=== PATIENT | male | born 1970 | race Caucasian/White ===

== ENCOUNTER 2017-02-13 19:25 | Emergency (ER) | payer BC, MEDICAID ==
[2017-02-13] MEDS ORDERED: Rocuronium 50 MG/5 ML Vial ONE (19:40)
[2017-02-13] MEDS ORDERED: Sodium Chloride 0.9% 1,000 ML IV ONE (19:40)
[2017-02-13] MEDS ORDERED: Etomidate 2 MG/ML 10 ML SDV ONE (19:43)
[2017-02-13] MEDS ORDERED: Aspirin 300 MG Supp ONE (19:53)
[2017-02-13] MEDS ORDERED: fentaNYL 100 MCG/2 ML SDV ONE ×2 (20:04→23:37)
[2017-02-13] MEDS ORDERED: Midazolam 1 MG/ML 2 ML SDV ONE (20:04)
[2017-02-13] MEDS ORDERED: Clopidogrel 75 MG Tab ONE ×2 (20:04→20:06)
--- NOTE | 2017-02-13 20:22 | EDM.PDOC ---
ED HPI CPR - General Chief Complaint: Cardiovascular Problem Stated Complaint: witnessed cardiac arrest Time Seen by Provider: 02/13/17 19:35 Source of Information: Reports: EMS, Old records History Limitations: Reports: Respiratory distress - History of Present Illness INITIAL COMMENTS - FREE TEXT/NARRATIVE: Patient was observed by his leaving their house. She was walking behind him. He fell and we are told he hit his head. When EMS arrived, they found him to be in V-Fib, per their report he was cyanotic on arrival. They did defibrillate x 1 and had ROSC. He does have an ICD, unknown if this was activated. He is not spontaneously breathing. EMS is currently ambu bagging for him. History of heart failure and ICD placement. He is non responsive. Symptom Onset Date: 02/13/17 Symptom Onset Time: 19:15 Witness: Yes Downtime Before ACLS: Unknown Advertising Sales Assistant Initial Findings: Reports: VF/VT Pre-Arrest Complaints: Reports: unknown Treatments PROFESSOR OF CRIMINAL JUSTICE: Reports: Other (see below) (defibrillation x 1 with return of spon. circ.) - Related Data Allergies/ADRs: Allergies Allergy/AdvReac Type Severity Reaction Status Date / Time hydrocodone Allergy Hives Verified 05/06/16 06:47 venom-honey bee Allergy Swelling Verified 05/06/16 06:47 [bee venom (honey bee)] Home Meds: Home Meds Albuterol [Proventil HFA] 2 puff INH Q4H PRN #1 inhaler 08/04/15 [Rx] Amphetamine/Dextroamphetamine [Adderall XR] 20 mg PO DAILY 08/04/15 [History] EPINEPHrine [Epipen] 0.3 mg .XX ASDIRECTED #1 pen 08/10/15 [Rx] Aspirin 81 mg DAILY 05/03/16 [History] Carvedilol [Carvedilol] 6.25 mg ASDIRECTED 05/03/16 [History] Clopidogrel Bisulfate [Clopidogrel] 75 mg DAILY 05/03/16 [History] Furosemide [Furosemide] 40 mg DAILY 05/03/16 [History] Lisinopril [Prinivil] 2.5 mg BID 05/03/16 [History] Pantoprazole Sodium [Pantoprazole Sodium] 40 mg DAILY 05/03/16 [History] Spironolactone [Spironolactone] 25 mg DAILY 05/03/16 [History] atorvaSTATin Calcium [Atorvastatin Calcium] 80 mg DAILY 05/03/16 [History] oxyCODONE 5 mg Q4H PRN 05/03/16 [History] Past Medical History Cardiovascular History: Reports: CAD, Cardiomyopathy, High cholesterol, Hypertension Musculoskeletal History: Reports: Gout, Other (see below) Other Musculoskeletal History: Restless leg syndrome Other Neuro History: adderall XR 40 mg in the am HX ADD Psychiatric History: Reports: ADHD - Past Surgical History Cardiovascular Surgical History: Reports: AICD, Coronary artery stent GI Surgical History: Reports: Appendectomy Musculoskeletal Surgical History: Reports: Arthroscopic knee Social & Family History - Tobacco Use Smoking Status *Q: Unknown Ever Smoked Years of Tobacco use: 10 Packs/Tins Daily: 0.2 Used Tobacco, but Quit: No Second Hand Smoke Exposure: No - Recreational Drug Use Recreational Drug Use: Yes Drug Use in Last 12 Months: No Recreational Drug Type: Reports: Amphetamines (Speed), Cocaine, Marijuana/ Hashish, Methamphetamine ED ROS GENERAL - Review of Systems Review Of Systems: Unable To Obtain ED EXAM, CPR - Physical Exam Exam: See Below Limited By: unresponsive General Appearance: moderate distress, obese Eye Exam: bilateral eye: PERRL Ears: normal TMs Throat/Mouth: Normal inspection, Normal oropharynx Head: atraumatic, normocephalic Respiratory Chest: lungs clear, normal breath sounds, other (physical ventilation) Cardiovascular: bradycardia GI/Abdominal Exam (Abbreviated): normal bowel sounds 1+: posterior-tibial (R), posterior-tibial (L), dorsalis-pedis (R), dorsalis- pedis (L) Extremities: slow capillary refill Neurological: unresponsive Skin Exam: Warm, Dry, Intact Course - Orders/Labs/Meds Meds: Medications Discontinued Medications Generic Name Dose Route Start Last Admin Trade Name Freq PRN Reason Stop Dose Admin Aspirin Confirm 02/13/17 19:53 Aspirin Administered 02/13/17 19:54 Dose 300 mg .ROUTE .STK-MED ONE Clopidogrel Bisulfate Confirm 02/13/17 20:06 Plavix Administered 02/13/17 20:07 Dose 450 mg .ROUTE .STK-MED ONE Etomidate Confirm 02/13/17 19:43 Amidate Administered 02/13/17 19:44 Dose 20 mg .ROUTE .STK-MED ONE Rocuronium Page Confirm 02/13/17 19:40 Zemuron Administered 02/13/17 19:41 Dose 50 mg .ROUTE .STK-MED ONE - Re-Assessments/Exams Free Text/Narrative Re-Assessment/Exam: 02/13/17 22:45 betzaida called upon arrival from ems. I did have acceptance by Dr. Mojica, cardiology at [facility]. At the last moment, his arrived and requested he be transferred to [facility] instead. Report called to both Dr. Manzano and the prosthetic technician jinny. While patient was here, he was intubated with 8.0 ETT. OG inserted, 14 maltese motley cath inserted, 2 Large bore IV, suggestion by betzaida to place in c-collar/c-spine precaution due to fall. Departure - Departure Time of Disposition: 20:14 Disposition: DC/Tfer to Acute Hospital 02 Condition: serious Clinical Impression: Ventricular fibrillation seen on makeup sales consultant Forms: Interfacility Transfer EMTALA - Problem List & Annotations (1) Ventricular fibrillation seen on makeup sales consultant SNOMED Code(s): 171162651 Code(s): I49.01 - VENTRICULAR FIBRILLATION Status: Acute - Problem List Review Problem List Initiated/Reviewed/Updated: Yes - Assessment/Plan Plan: sent to [facility] for possible ST elevated [place] with ventricular fibrillation
== END 2017-02-13 20:14 | disposition short-term general hospital (02) ==
LOC: VM.ED 19:28
PROC: 0BH17EZ Insertion of Endotracheal Airway into Trachea, Via Natural or Artificial Opening (ICD-10-PCS; principal; 2017-02-13)
PROC: 0T2BX0Z Change Drainage Device in Bladder, External Approach (ICD-10-PCS; 2017-02-13)
DX: I49.01 Ventricular fibrillation (principal); I25.10 Atherosclerotic heart disease of native coronary artery without angina pectoris; I42.9 Cardiomyopathy, unspecified; E78.00 Pure hypercholesterolemia, unspecified; I10 Essential (primary) hypertension; Z95.810 Presence of automatic (implantable) cardiac defibrillator; F90.9 Attention-deficit hyperactivity disorder, unspecified type; G25.81 Restless legs syndrome; Z95.5 Presence of coronary angioplasty implant and graft; Z88.8 Allergy status to other drugs, medicaments and biological substances; Z79.899 Other long term (current) drug therapy
CPT/HCPCS: 31500; 94002; 96361; 96374; 96375; 99291; A9270-GY; J2250; J3010; J7030

== ENCOUNTER 2020-04-03 12:36 | Emergency (ER) | payer BC, MEDICAID ==
--- NOTE | 2020-04-03 13:02 | EDM.PDOC ---
ED HPI GENERAL MEDICAL PROBLEM - General Chief Complaint: Cardiovascular Problem Time Seen by Provider: 04/03/20 12:36 Source of Information: Reports: Patient History Limitations: Reports: No Limitations - History of Present Illness INITIAL COMMENTS - FREE TEXT/NARRATIVE: Pt. presents to ER with complaints of AICD discharge and palpitations. He states that he woke with complaints of palpitations. He states that his AICD discharged once. Pt. has a history of ischemic cardiomyopathy with EF of 20%. Pt. had a cardiac arrest in 2015. 2015. Pt. has had AICD discharges in the past ; typically he just follows up with his cilnical scientist on an outpatient basis. On arrival to ED, denies any chest pain, shortness of breath, palpitations. He was diaphoretic during this episode. Denies nausea or vomiting. Treatments CUSTOMER CONSULTANT: Reports: EKG, IV/IO, Other Medication(s) Headache Pain Score (Numeric/FACES): 7 - Related Data Allergies Allergy/AdvReac Type Severity Reaction Status Date / Time hydrocodone Allergy Hives Verified 05/06/16 06:47 venom-honey bee Allergy Swelling Verified 05/06/16 06:47 [bee venom (honey bee)] Home Meds: Home Meds Albuterol [Proventil HFA] 2 puff INH Q4H PRN #1 inhaler 08/04/15 [Rx] Amphetamine/Dextroamphetamine [Adderall XR] 20 mg PO DAILY 08/04/15 [History] EPINEPHrine [Epipen] 0.3 mg .XX ASDIRECTED #1 pen 08/10/15 [Rx] Aspirin 81 mg DAILY 05/03/16 [History] Clopidogrel Bisulfate [Clopidogrel] 75 mg DAILY 05/03/16 [History] Furosemide 40 mg DAILY 05/03/16 [History] Lisinopril [Prinivil] 2.5 mg BID 05/03/16 [History] Pantoprazole Sodium 40 mg DAILY 05/03/16 [History] Spironolactone 25 mg DAILY 05/03/16 [History] atorvaSTATin Calcium [Atorvastatin Calcium] 80 mg DAILY 05/03/16 [History] carvediloL [Carvedilol] 6.25 mg ASDIRECTED 05/03/16 [History] oxyCODONE 5 mg Q4H PRN 05/03/16 [History] Past Medical History Cardiovascular History: Reports: Automatic Implantable Cardioverter Defibrillators, CAD, Cardiomyopathy, High Cholesterol, Hypertension, [place], Pacemaker Musculoskeletal History: Reports: Gout, Other (See Below) Other Musculoskeletal History: Restless leg syndrome Other Neuro History: adderall XR 40 mg in the am HX ADD Psychiatric History: Reports: ADHD - Past Surgical History Cardiovascular Surgical History: Reports: AICD, Coronary Artery Stent GI Surgical History: Reports: Appendectomy Musculoskeletal Surgical History: Reports: Arthroscopic Knee ED ROS GENERAL - Review of Systems Review Of Systems: See Below Constitutional: Reports: No Symptoms HEENT: Reports: No Symptoms Respiratory: Reports: No Symptoms Cardiovascular: Reports: Other (See above) Endocrine: Reports: No Symptoms GI/Abdominal: Reports: No Symptoms : Reports: No Symptoms Musculoskeletal: Reports: No Symptoms Skin: Reports: Diaphoresis Neurological: Reports: No Symptoms Psychiatric: Reports: No Symptoms Hematologic/Lymphatic: Reports: No Symptoms Immunologic: Reports: No Symptoms ED EXAM, GENERAL - Physical Exam Exam: See Below Exam Limited By: No Limitations General Appearance: Alert, WD/WN, No Apparent Distress Nose: Normal Inspection, No Blood Throat/Mouth: Normal Inspection, Normal Lips, Normal Voice, No Airway Compromise Head: Atraumatic, Normocephalic Neck: Normal Inspection, Supple, Non-Tender, Full Range of Motion Respiratory/Chest: No Respiratory Distress, Lungs Clear, Normal Breath Sounds, No Accessory Muscle Use, Chest Non-Tender Cardiovascular: Normal Peripheral Pulses, Regular Rate, Rhythm, No Edema, No Murmur Peripheral Pulses: 4+: Radial (L) GI/Abdominal: Soft, Non-Tender, No Mass (Male) Exam: Deferred Rectal (Males) Exam: Deferred Back Exam: Normal Inspection, Full Range of Motion Extremities: Normal Inspection, Normal Range of Motion, Non-Tender, No Pedal Edema, Normal Capillary Refill Neurological: Alert, Oriented, CN II-XII Intact, Normal Cognition, Normal Gait, Normal Reflexes, No Motor/Sensory Deficits Psychiatric: Normal Affect, Normal Mood Skin Exam: Warm, Dry, Intact, Normal Color, No Rash Lymphatic: No Adenopathy EKG INTERPRETATION Rhythm: NSR [place]: Normal P-Wave: Present QRS: Normal ST-T: Normal QT: Normal Course - Vital Signs Last Recorded V/S: Last Vital Signs Temp 36.0 C L 04/03/20 12:36 Pulse 88 04/03/20 12:36 Resp 18 04/03/20 12:36 BP 128/94 H 04/03/20 12:36 Pulse Ox 96 04/03/20 12:36 - Orders/Labs/Meds Orders: Active Orders 24 hr Category Date Time Status EKG Documentation Completion [RC] STAT Care 04/03/20 12:43 Active Labs: Laboratory Tests 04/03/20 04/03/20 04/03/20 Range/Units 12:58 12:58 12:58 WBC 5.5 (4.0-10.0) x10^3/uL RBC 5.06 (4.5-6.0) x10^6/uL Hgb 13.8 L (14.0-18.0) g/dL Hct 42.4 (40.0-52.0) % MCV 83.8 (78.0-93.0) fL MCH 27.3 (26.0-32.0) pg MCHC 32.5 (32.0-36.0) g/dL RDW Coeff of Demar 14.3 (10.0-15.0) % Plt Count 291 (130-400) x10^3/uL Neut % (Auto) 64.9 (50.0-80.0) % Lymph % (Auto) 21.7 L (25.0-50.0) % [place] % (Auto) 8.9 (2.0-11.0) % Eos % (Auto) 3.8 (0.0-4.0) % Baso % (Auto) 0.7 (0.2-1.2) % PT 10.3 (9.5-12.3) SEC INR 0.9 L (2.0-3.5) Sodium 141 (136-145) mmol/L Potassium 4.6 (3.5-5.1) mmol/L Chloride 105 (98-107) mmol/L Carbon Dioxide 28 (21-32) mmol/L Anion Gap 12.6 (10-20) mmol/L BUN 22 H (7-18) mg/dL Creatinine 1.3 (0.70-1.30) mg/dL Est Cr Clr Drug Dosing TNP Estimated GFR (MDRD) 58 Glucose 95 (74-106) mg/dL Calcium 8.7 (8.5-10.1) mg/dL Corrected Calcium 9.26 (8.5-10.1) mg/dL Magnesium 2.0 (1.8-2.4) mg/dL Total Bilirubin 0.2 (0.2-1.0) mg/dL AST 15 (15-37) U/L ALT 23 (16-63) U/L Alkaline Phosphatase 64 (46-116) U/L Troponin I 0.142 H* (<=0.056) ng/mL NT-Pro-B Natriuret Pep 592 H (<=125) pg/mL Total Protein 7.4 (6.4-8.2) g/dL Albumin 3.3 L (3.4-5.0) g/dL Globulin 4.1 Albumin/Globulin Ratio 0.80 TSH, Ultra Sensitive 1.982 (0.358-3.74) uIU/mL Departure - Departure Time of Disposition: 14:15 Disposition: DC/Tfer to Acute Hospital 02 Reason for Transfer *Q: Other Clinical Impression: NSTEMI (non-ST elevated myocardial infarction), AICD discharge Instructions: Heart Attack, [id number] Referrals: PCP,None [Primary Care Provider] - Forms: ED Department Discharge Sepsis Event Note (ED) - Evaluation Sepsis Screening Result: No Definite Risk - Focused Exam Vital Signs: Vital Signs Temp Pulse Resp BP Pulse Ox 04/03/20 12:36 36.0 C L 88 18 128/94 H 96 - Problem List Review Problem List Initiated/Reviewed/Updated: Yes - My Orders Last 24 Hours: My Active Orders 04/03/20 12:43 EKG Documentation Completion [RC] STAT - Assessment/Plan Last 24 Hours: My Active Orders 04/03/20 12:43 EKG Documentation Completion [RC] STAT Plan: Pt. will be transferred to [facility] in [place]. Dr. Cline will be accepting. Pt. will be transported via [facility] ground ambulance. Discussed findings with family. He is a code 1.
[2020-04-03 13:42] LABS: CHLORIDE,CL 105 mmol/L (98-107); SODIUM,NA 141 mmol/L (136-145)
[2020-04-03 13:51] LABS: ANION GAP 12.6 mmol/L (10-20)
[2020-04-03 16:29] VITALS: BP 123/78; PULSE 88
== END 2020-04-03 15:20 | disposition short-term general hospital (02) ==
LOC: VM.ED 12:36
DX: T82.199A Other mechanical complication of unspecified cardiac device, initial encounter (principal); I21.4 Non-ST elevation (NSTEMI) myocardial infarction; E78.00 Pure hypercholesterolemia, unspecified; I10 Essential (primary) hypertension; I25.2 Old myocardial infarction; I25.10 Atherosclerotic heart disease of native coronary artery without angina pectoris; M10.9 Gout, unspecified; Z79.82 Long term (current) use of aspirin; Z79.02 Long term (current) use of antithrombotics/antiplatelets; Z79.899 Other long term (current) drug therapy; Z91.030 Bee allergy status; Z88.5 Allergy status to narcotic agent
CPT/HCPCS: 36415; 80053; 83735; 83880; 84443; 84484; 85025; 85610; 93005; 99285-25

== ENCOUNTER 2020-05-09 02:15 | Emergency (ER) | payer MEDICAID ==
[2020-05-09] MEDS ORDERED: fentaNYL 100 MCG/2 ML SDV IVPUSH ONE (03:02)
[2020-05-09] MEDS ORDERED: Amiodarone 150 MG/3 ML SDV IVPUSH ONE ×2 (03:02)
[2020-05-09] MEDS ORDERED: Aspirin 81 MG Tab.Chew PO ONE (03:02)
[2020-05-09 03:31] LABS: ANION GAP 12.6 mmol/L (10-20); CHLORIDE,CL 101 mmol/L (98-107); SODIUM,NA 141 mmol/L (136-145)
--- NOTE | 2020-05-09 03:32 | EDM.PDOC ---
ED HPI GENERAL MEDICAL PROBLEM - General Stated Complaint: palpitations Time Seen by Provider: 05/09/20 02:15 Source of Information: Reports: Patient History Limitations: Reports: No Limitations - History of Present Illness INITIAL COMMENTS - FREE TEXT/NARRATIVE: Patient comes emergency department today with complaints of palpitations chest pain and shortness of breath. This patient awoke about 15 to 20 minutes prior to arrival from sleep feeling like his heart is pounding very fast. He felt like his AICD was going to fire at home although it has not. He does have a history of a reduced ejection fraction for which she has a defibrillator in place. He has had his ICD fire 17 times in the past. Most recently was about a month ago when it fired at home he was sent to [facility] in [place] had an angiogram that he reports was negative. He has felt well over the past couple of days. No fever no chills. No COVID exposure. No COVID symptoms. He has been out of his amiodarone and Coreg for the last 2 to 3 weeks and he relates that his primary care will not refill them until he sees them in the clinic. Therefore he just has not been taking them. He denies any fever or chills. No abdominal pain. He is very anxious and he has severe distress from the palpitation sensation in his chest. He still continues to smoke. - Related Data Allergies Allergy/AdvReac Type Severity Reaction Status Date / Time hydrocodone Allergy Hives Verified 05/06/16 06:47 venom-honey bee Allergy Swelling Verified 05/06/16 06:47 [bee venom (honey bee)] Home Meds: Home Meds Albuterol [Proventil HFA] 2 puff INH Q4H PRN #1 inhaler 08/04/15 [Rx] Amphetamine/Dextroamphetamine [Adderall XR] 20 mg PO DAILY 08/04/15 [History] EPINEPHrine [Epipen] 0.3 mg .XX ASDIRECTED #1 pen 08/10/15 [Rx] Aspirin 81 mg DAILY 05/03/16 [History] Clopidogrel Bisulfate [Clopidogrel] 75 mg DAILY 05/03/16 [History] Furosemide 40 mg DAILY 05/03/16 [History] Lisinopril [Prinivil] 2.5 mg BID 05/03/16 [History] Pantoprazole Sodium 40 mg DAILY 05/03/16 [History] Spironolactone 25 mg DAILY 05/03/16 [History] atorvaSTATin Calcium [Atorvastatin Calcium] 80 mg DAILY 05/03/16 [History] carvediloL [Carvedilol] 6.25 mg ASDIRECTED 05/03/16 [History] oxyCODONE 5 mg Q4H PRN 05/03/16 [History] Past Medical History Cardiovascular History: Reports: Automatic Implantable Cardioverter Defibrillators, CAD, Cardiomyopathy, High Cholesterol, Hypertension, [place], Pacemaker Musculoskeletal History: Reports: Gout, Other (See Below) Other Musculoskeletal History: Restless leg syndrome Other Neuro History: adderall XR 40 mg in the am HX ADD Psychiatric History: Reports: ADHD - Past Surgical History Cardiovascular Surgical History: Reports: AICD, Coronary Artery Stent GI Surgical History: Reports: Appendectomy Musculoskeletal Surgical History: Reports: Arthroscopic Knee ED ROS GENERAL - Review of Systems Review Of Systems: Comprehensive ROS is negative, except as noted in HPI. ED EXAM, GENERAL - Physical Exam Exam: See Below Exam Limited By: No Limitations General Appearance: Alert, WD/WN, Anxious, Moderate Distress Eye Exam: Bilateral Eye: EOMI, PERRL Ears: Normal External Exam Nose: Normal Inspection Throat/Mouth: Normal Inspection Head: Atraumatic, Normocephalic Neck: Normal Inspection, Supple Respiratory/Chest: No Respiratory Distress (No respiratory distress just tachypnea most likely due to his anxiety from the current situation.), Lungs Clear, Normal Breath Sounds, No Accessory Muscle Use, Chest Non-Tender Cardiovascular: Normal Peripheral Pulses, Regular Rate, Rhythm, Tachycardia, Other (His initial monitor shows a widely irregular complex in the rate of 160- 170.) Peripheral Pulses: 2+: Radial (L), Radial (R), Posterior Tibial (L), Posterior Tibial (R), Dorsalis Pedis (L), Dorsalis Pedis (R) GI/Abdominal: Normal Bowel Sounds, Soft (Male) Exam: Deferred Rectal (Males) Exam: Deferred Back Exam: Normal Inspection Extremities: Normal Inspection, Normal Range of Motion, Normal Capillary Refill Neurological: Alert, Oriented, CN II-XII Intact, Normal Cognition, No Motor/Sensory Deficits Psychiatric: Anxious Skin Exam: Intact, No Rash, Cool, Diaphoretic EKG INTERPRETATION EKG Date: 05/09/20 Time: 02:19 Rhythm: Other (Wide complex tachy irregular VT) Rate (Beats/Min): 156 Comparison: Change From Previous EKG Course - Vital Signs Last Recorded V/S: Last Vital Signs Temp Pulse Resp BP Pulse Ox 98 05/09/20 03:35 - Orders/Labs/Meds Orders: Active Orders 24 hr Category Date Time Status EKG 12 Lead [EKG Documentation Completion] [] STAT Care 05/09/20 02:15 Active Oxygen Therapy Peds [Oxygen Therapy, ED] [] Care 05/09/20 02:30 Active ASDIRECTED Labs: Laboratory Tests 05/09/20 05/09/20 05/09/20 Range/Units 02:20 02:20 02:20 WBC 9.3 (4.0-10.0) x10^3/uL RBC 5.43 (4.5-6.0) x10^6/uL Hgb 14.8 (14.0-18.0) g/dL Hct 45.6 (40.0-52.0) % MCV 84.0 (78.0-93.0) fL MCH 27.3 (26.0-32.0) pg MCHC 32.5 (32.0-36.0) g/dL RDW Coeff of Demar 14.6 (10.0-15.0) % Plt Count 294 (130-400) x10^3/uL Neut % (Auto) 55.4 (50.0-80.0) % Lymph % (Auto) 30.1 (25.0-50.0) % [place] % (Auto) 11.0 (2.0-11.0) % Eos % (Auto) 3.1 (0.0-4.0) % Baso % (Auto) 0.4 (0.2-1.2) % Sodium 141 (136-145) mmol/L Potassium 3.6 (3.5-5.1) mmol/L Chloride 101 (98-107) mmol/L Carbon Dioxide 31 (21-32) mmol/L Anion Gap 12.6 (10-20) mmol/L BUN 22 H (7-18) mg/dL Creatinine 1.2 (0.70-1.30) mg/dL Est Cr Clr Drug Dosing TNP Estimated GFR (MDRD) > 60 Glucose 112 H (74-106) mg/dL Calcium 8.3 L (8.5-10.1) mg/dL Corrected Calcium 8.78 (8.5-10.1) mg/dL Magnesium 2.0 (1.8-2.4) mg/dL Total Bilirubin 0.2 (0.2-1.0) mg/dL AST 19 (15-37) U/L ALT 24 (16-63) U/L Alkaline Phosphatase 71 (46-116) U/L POC Troponin I 0.02 (0.00-0.08) ng/mL Total Protein 7.5 (6.4-8.2) g/dL Albumin 3.4 (3.4-5.0) g/dL Globulin 4.1 Albumin/Globulin Ratio 0.83 TSH, Ultra Sensitive 2.358 (0.358-3.74) uIU/mL Meds: Medications Discontinued Medications Generic Name Dose Route Start Last Admin Trade Name Freq PRN Reason Stop Dose Admin Amiodarone HCl 150 mg 05/09/20 03:02 Cordarone IVPUSH 05/09/20 03:03 ONETIME ONE Amiodarone HCl 150 mg 05/09/20 03:02 Cordarone IVPUSH 05/09/20 03:03 ONETIME ONE Amiodarone HCl Confirm 05/09/20 05:18 Cordarone Administered 05/09/20 05:19 Dose 300 mg .ROUTE .STK-MED ONE Aspirin 324 mg 05/09/20 03:02 Aspirin PO 05/09/20 03:03 ONETIME ONE Fentanyl 100 mcg 05/09/20 03:02 Sublimaze IVPUSH 05/09/20 03:03 ONETIME ONE Fentanyl Confirm 05/09/20 05:18 Sublimaze Administered 05/09/20 05:19 Dose 100 mcg .ROUTE .STK-MED ONE Amiodarone HCl/Dextrose 360 mg in 200 mls @ 33.333 mls/hr 05/09/20 03:45 Nexterone In Dextrose 360 Mg/200 Ml IV ASDIRECTED WIL Protocol - Re-Assessments/Exams Free Text/Narrative Re-Assessment/Exam: 05/09/20 E Emergency was contacted for charting and medical provider assistance as well. [facility] launched for transfer. He was also connected to the Defib with pads in preparation for cardioversion if he becomes unstable at anytime. EKG shows a wide complex irregular regular kind of intermittent tachycardia most likely a controlled VT but not fast enough to fire his AICD which are usually set at 180 BPM. He was given fentanyl for pain and anxiety Aspirin 324 orally Amiodarone 150mg Bolus over 10 minutes. No further guidance from E Emergency for management at this time. I did repeat the Amiodarone 150mg bolus as he maintained in the wide complex VT the entire time in the ED. He had only one blood pressure in the 70s which was most likely from the fentanyl otherwise his pressures were in the 110s systolically while in the ED. His labs are rather unremarkable at this time with electrolytes creat normal and normal Troponin. He did feel better after the fentanyl and the amiodarone although his cardiac rhythm did not change and he maintained good pulses and was stable prior to and after discharge with [facility]. I did call and speak with Dr. Beck (spelling?) the ER MD HPI ER COURSE findings and concerns were relayed to him as well as the labs and therapy. No new orders or directions. He accepted the patient in transfer at this time by [facility]. The patient maintained stability and good blood pressure and level of consciousness during his time in the ED and care was transfered to [facility]. Departure - Departure Time of Disposition: 03:00 Disposition: DC/Tfer to Acute Hospital 02 Reason for Transfer *Q: Other Clinical Impression: Wide-complex tachycardia Referrals: PCP,None [Primary Care Provider] - Forms: [facility] Critical Care Note - Critical Care Note Total Time (mins): 75 Comments: 75 minutes of direct critical care time with E Emergency as well for direct patient care management transfer arrangements and consultation with multiple other providers and preparing for transport. - My Orders Last 24 Hours: My Active Orders 05/09/20 02:15 EKG 12 Lead [EKG Documentation Completion] [RC] STAT 05/09/20 02:30 Oxygen Therapy Peds [Oxygen Therapy, ED] [RC] ASDIRECTED - Assessment/Plan Last 24 Hours: My Active Orders 05/09/20 02:15 EKG 12 Lead [EKG Documentation Completion] [RC] STAT 05/09/20 02:30 Oxygen Therapy Peds [Oxygen Therapy, ED] [RC] ASDIRECTED Assessment:: Wide complex stable VT tachycardia. E Emergency usage Critical Care time 75 minutes. Hx of Reduced ejection fraction. Poor medication compliance. Plan: Transfer by [facility] to [facility] with Amiodarone gtt continued.
[2020-05-09] MEDS ORDERED: Amiodarone 150 MG/3 ML SDV ONE (05:18)
[2020-05-09] MEDS ORDERED: fentaNYL 100 MCG/2 ML SDV ONE (05:18)
== END 2020-05-09 03:35 | disposition short-term general hospital (02) ==
LOC: VM.ED 02:15
DX: R00.0 Tachycardia, unspecified (principal); I25.10 Atherosclerotic heart disease of native coronary artery without angina pectoris; E78.00 Pure hypercholesterolemia, unspecified; I10 Essential (primary) hypertension; I25.2 Old myocardial infarction; M10.9 Gout, unspecified; Z88.5 Allergy status to narcotic agent; Z91.030 Bee allergy status; Z79.82 Long term (current) use of aspirin; Z79.02 Long term (current) use of antithrombotics/antiplatelets; Z79.899 Other long term (current) drug therapy
CPT/HCPCS: 80053; 83735; 84443; 84484; 85025; 93005; 93010; 96374; 96375; 96376; 99291; 99291-25

== ENCOUNTER 2020-08-06 14:39 | Emergency (ER) | payer MEDICAID, OTHER ==
[2020-08-06] MEDS ORDERED: Sodium Chloride 0.9% 10 ML Syringe FLUSH PRN (15:00)
--- NOTE | 2020-08-06 15:06 | EDM.PDOC ---
ED HPI GENERAL MEDICAL PROBLEM - General Chief Complaint: Respiratory Problem Stated Complaint: CONGESTION,SINUS,CHEST PRESSURE,COFFEE Time Seen by Provider: 08/06/20 15:00 Source of Information: Reports: Patient History Limitations: Reports: No Limitations - History of Present Illness INITIAL COMMENTS - FREE TEXT/NARRATIVE: Patient comes emergency department today from home with complaints of 4 days of cough congestion. This patient for the past 4 days has had sinus congestion and drainage. He has had increasing cough and congestion in his chest. His chest congestion is now become a productive cough. He initially had a fever of 100.7 a couple of days ago but has not had it since. Today he has developed some tightness and heaviness in his chest. He has been diaphoretic. He does have a quite extensive cardiac history for which I am well aware of as I have taken care of him when he was in stable ventricular tachycardia just a couple of months ago which he ended up having another ablation. He does not feel any palpitations or tachycardia. He has not had any syncope. He did get COVID tested a couple of days ago but did not get the results of it. No abdominal pain nausea or vomiting. No loss of taste or smell. No diarrhea. No syncope. He has been taking his medications as prescribed in the past. No COVID exposure no COVID symptoms - Related Data Allergies Allergy/AdvReac Type Severity Reaction Status Date / Time hydrocodone Allergy Hives Verified 08/06/20 14:52 venom-honey bee Allergy Swelling Verified 08/06/20 14:52 [bee venom (honey bee)] Home Meds: Home Meds Albuterol [Proventil HFA] 2 puff INH Q4H PRN #1 inhaler 08/04/15 [Rx] Amphetamine/Dextroamphetamine [Adderall XR] 20 mg PO DAILY 08/04/15 [History] EPINEPHrine [Epipen] 0.3 mg .XX ASDIRECTED #1 pen 08/10/15 [Rx] Aspirin 81 mg DAILY 05/03/16 [History] Clopidogrel Bisulfate [Clopidogrel] 75 mg DAILY 05/03/16 [History] Furosemide 40 mg DAILY 05/03/16 [History] Lisinopril [Prinivil] 2.5 mg BID 05/03/16 [History] Pantoprazole Sodium 40 mg DAILY 05/03/16 [History] Spironolactone 25 mg DAILY 05/03/16 [History] atorvaSTATin Calcium [Atorvastatin Calcium] 80 mg DAILY 05/03/16 [History] carvediloL [Carvedilol] 6.25 mg ASDIRECTED 05/03/16 [History] oxyCODONE 5 mg Q4H PRN 05/03/16 [History] Albuterol [Ventolin HFA] 2 puff INH Q4H #1 puff 08/06/20 [Rx] predniSONE 20 mg PO DAILY #5 tab 08/06/20 [Rx] Past Medical History Cardiovascular History: Reports: Automatic Implantable Cardioverter Defibrillators, CAD, Cardiomyopathy, High Cholesterol, Hypertension, [place], Pacemaker Musculoskeletal History: Reports: Gout, Other (See Below) Other Musculoskeletal History: Restless leg syndrome Other Neuro History: adderall XR 40 mg in the am HX ADD Psychiatric History: Reports: ADHD - Past Surgical History Cardiovascular Surgical History: Reports: AICD, Coronary Artery Stent Other Cardiovascular Surgeries/Procedures: cardiac ablation GI Surgical History: Reports: Appendectomy Musculoskeletal Surgical History: Reports: Arthroscopic Knee Social & Family History - Tobacco Use Tobacco Use Status *Q: Former Tobacco User Used Tobacco, but Quit: Yes Month/Year Tobacco Last Used: 10/23 ED ROS GENERAL - Review of Systems Review Of Systems: Comprehensive ROS is negative, except as noted in HPI. ED EXAM, GENERAL - Physical Exam Exam: See Below Exam Limited By: No Limitations General Appearance: Alert, WD/WN, Anxious (Very anxious animated patient although this is how he is normally. ) Ears: Normal External Exam, Normal TMs Nose: No: Normal Inspection (A bit of injection and swelling of the nasal turbinates clear rhinorrhea and congestion. No blood) Throat/Mouth: Normal Lips, Normal Voice. No: Normal Inspection (Pharynx is unremarkable other than pink salmon-colored vesicles in the posterior pharynx and cobblestoning consistent with postnasal drip. There is no erythema swelling redness or exudate of the oropharynx.) Head: Atraumatic, Normocephalic Neck: Normal Inspection, Supple, Non-Tender, Full Range of Motion. No: Lymphadenopathy (L), Lymphadenopathy (R) Respiratory/Chest: No Respiratory Distress, Lungs Clear, Normal Breath Sounds, No Accessory Muscle Use, Chest Non-Tender, Other (He has a noted cough that is dry and hacking nonproductive) Cardiovascular: Normal Peripheral Pulses, Regular Rate, Rhythm Peripheral Pulses: 2+: Radial (L), Radial (R), Posterior Tibial (L), Posterior Tibial (R), Dorsalis Pedis (L), Dorsalis Pedis (R) GI/Abdominal: Normal Bowel Sounds, Soft, Non-Tender (Male) Exam: Deferred Rectal (Males) Exam: Deferred Back Exam: Normal Inspection, Full Range of Motion Extremities: Normal Inspection, Normal Range of Motion, Non-Tender, No Pedal Edema, Normal Capillary Refill Neurological: Alert, Oriented, Normal Cognition, No Motor/Sensory Deficits Psychiatric: Anxious Skin Exam: Warm, Intact, Normal Color, No Rash, Diaphoretic Lymphatic: No Adenopathy #1 Interpretation EKG Date: 08/06/20 Time: 15:05 Rhythm: NSR Rate (Beats/Min): 80 [place]: Normal P-Wave: Present QRS: Normal ST-T: Normal QT: Normal Comparison: Change From Previous EKG (although his previous was Stable V-Tach. Unchanged from recent EKG at [facility] through [facility].) Course - Vital Signs Last Recorded V/S: Last Vital Signs Temp 97.4 F 08/06/20 16:38 Pulse 82 08/06/20 16:38 Resp 18 08/06/20 16:38 BP 128/74 08/06/20 16:38 Pulse Ox 97 08/06/20 16:38 - Orders/Labs/Meds Orders: Active Orders 24 hr Category Date Time Status Peripheral IV Insertion Adult [OM.PC] Stat Oth 08/06/20 15:00 Ordered Labs: Laboratory Tests 08/06/20 08/06/20 08/06/20 Range/Units 15:12 15:25 15:46 WBC 7.6 (4.0-10.0) x10^3/uL RBC 4.76 (4.5-6.0) x10^6/uL Hgb 12.9 L D (14.0-18.0) g/dL Hct 39.8 L (40.0-52.0) % MCV 83.6 (78.0-93.0) fL MCH 27.1 (26.0-32.0) pg MCHC 32.4 (32.0-36.0) g/dL RDW Coeff of [place] 14.2 (10.0-15.0) % Plt Count 357 (130-400) x10^3/uL Neut % (Auto) 69.7 (50.0-80.0) % Lymph % (Auto) 16.4 L (25.0-50.0) % [place] % (Auto) 9.9 (2.0-11.0) % Eos % (Auto) 3.9 (0.0-4.0) % Baso % (Auto) 0.1 L (0.2-1.2) % Sodium (136-145) mmol/L Potassium (3.5-5.1) mmol/L Chloride (98-107) mmol/L Carbon Dioxide (21-32) mmol/L Anion Gap (10-20) mmol/L BUN (7-18) mg/dL Creatinine (0.70-1.30) mg/dL Est Cr Clr Drug Dosing Estimated GFR (MDRD) Glucose (74-106) mg/dL Calcium (8.5-10.1) mg/dL Corrected Calcium (8.5-10.1) mg/dL Total Bilirubin (0.2-1.0) mg/dL AST (15-37) U/L ALT (16-63) U/L Alkaline Phosphatase (46-116) U/L Troponin I (<=0.056) ng/mL C-Reactive Protein (<=0.9) mg/dL NT-Pro-B Natriuret Pep (<=125) pg/mL Total Protein (6.4-8.2) g/dL Albumin (3.4-5.0) g/dL Globulin Albumin/Globulin Ratio SARS CoV-2 RNA Rapid BIRD Invalid A Negative (NEGATIVE) 08/06/20 Range/Units 15:46 WBC (4.0-10.0) x10^3/uL RBC (4.5-6.0) x10^6/uL Hgb (14.0-18.0) g/dL Hct (40.0-52.0) % MCV (78.0-93.0) fL MCH (26.0-32.0) pg MCHC (32.0-36.0) g/dL RDW Coeff of [place]ar (10.0-15.0) % Plt Count (130-400) x10^3/uL Neut % (Auto) (50.0-80.0) % Lymph % (Auto) (25.0-50.0) % [place] % (Auto) (2.0-11.0) % Eos % (Auto) (0.0-4.0) % Baso % (Auto) (0.2-1.2) % Sodium 139 (136-145) mmol/L Potassium 4.3 (3.5-5.1) mmol/L Chloride 100 (98-107) mmol/L Carbon Dioxide 32 (21-32) mmol/L Anion Gap 11.3 (10-20) mmol/L BUN 20 H (7-18) mg/dL Creatinine 1.4 H (0.70-1.30) mg/dL Est Cr Clr Drug Dosing TNP Estimated GFR (MDRD) 53 Glucose 116 H (74-106) mg/dL Calcium 9.0 (8.5-10.1) mg/dL Corrected Calcium 9.32 (8.5-10.1) mg/dL Total Bilirubin 0.4 (0.2-1.0) mg/dL AST 23 (15-37) U/L ALT 32 (16-63) U/L Alkaline Phosphatase 83 (46-116) U/L Troponin I 0.130 H* (<=0.056) ng/mL C-Reactive Protein 1.4 H (<=0.9) mg/dL NT-Pro-B Natriuret Pep 773 H (<=125) pg/mL Total Protein 8.0 (6.4-8.2) g/dL Albumin 3.6 (3.4-5.0) g/dL Globulin 4.4 Albumin/Globulin Ratio 0.82 SARS CoV-2 RNA Rapid BIRD (NEGATIVE) Meds: Medications Discontinued Medications Generic Name Dose Route Start Last Admin Trade Name Freq PRN Reason Stop Dose Admin Albuterol/Ipratropium 3 ml 08/06/20 15:54 08/06/20 16:06 Duoneb 3.0-0.5 Mg/3 Ml NEB 08/06/20 15:55 3 ml ONETIME ONE Administration Aspirin 324 mg 08/06/20 16:36 08/06/20 16:42 Aspirin PO 08/06/20 16:37 324 mg ONETIME ONE Administration Sodium Chloride 10 ml 08/06/20 15:00 Saline Flush FLUSH ASDIRECTED PRN Keep Vein Open - Radiology Interpretation Free Text/Narrative:: Chest X-ray per radiology shows no pneumonia or edema. - Re-Assessments/Exams Free Text/Narrative Re-Assessment/Exam: 08/06/20 Duo-neb nebulizer Patient had complete resolution of his shortness of breath tightness in his breath and his cough with the above DuoNeb. EKG does not show any acute ST elevation or depression. His diaphoresis has resolved. Chest x-ray is unremarkable. WBC is negative. He does have a mildly elevated troponin at 0.130 a mildly elevated creatinine of 1.4 and a mildly elevated BUN. Chest pain or tightness has resolved after the nebulizer. He was given 324 of aspirin orally. This patient quite well and he has a rather extensive cardiac history. I would like him to stay in the emergency department for repeat troponin at 4 hours. With the change in his creatinine and his chronic rather large cardiac history I wonder if he does not have somewhat of a chronic elevation of his troponin. Although I cannot make that determination without serial evaluation of his tropo aric. The patient does not wish to stay and have his EKG and his troponin repeated as he has to take his dog to the vet. I explained to him that he could be having acute coronary syndrome, or other pathology distant with a heart attack or other ischemia and could have cardiac arrhythmias. The patient he denies wanting to stay and have a repeat of his troponin and his EKG. He is clearly understanding the risk of cardiac or arrhythmia or ischemic damage to his heart. He is alert appropriate and of sound mind. He understands the risk of leaving. He does state that he will return for repeat EKG and troponin in 4 hours. He just cannot stay here he needs to get his dog to the vet. I will treat him for his bronchitis but it is highly important for him to return so I can repeat a troponin and EKG. He is understanding of this his questions were answered. He still chooses to leave despite the risk planed above he signed the papers AGAINST MEDICAL ADVICE. Departure - Departure Time of Disposition: 16:42 Disposition: Against Medical Advice 07 Clinical Impression: Elevated troponin Acute bronchitis Qualifiers: Bronchitis organism: unspecified organism Qualified Code(s): J20.9 - Acute bronchitis, unspecified - Discharge Information Prescriptions: predniSONE 20 mg PO DAILY #5 tab Albuterol [Ventolin HFA] 2 puff INH Q4H #1 puff Instructions: Acute Bronchitis, Adult, [id number] Referrals: Danie Reid [facility] [Primary Care Provider] - Forms: ED Department Discharge Additional Instructions: You have chosen to leave Against Medical Advice with the clear understanding of the risk of , heart attack stroke or cardiac arrythmia that could be fatal. I would like you to return in 4 hours for a repeat EKG and Troponin at least. Return at 8PM. If during that time any new symptoms develop you must come directly to the ED or call 911. Continue your previous meds as before. Prednisone 20mg a day for the next 5 days. Rx to [facility]. Lots of fluids over the next few days. Albuterol Inhaler, 2 puffs every 4 hrs as needed for SOB or cough. RX to [facility]. Return to the ED if new or worsening symptoms. Follow up with PCP next available due to the elevated troponin. Sepsis Event Note (ED) - Evaluation Sepsis Screening Result: No Definite Risk - Focused Exam Vital Signs: Vital Signs Temp Pulse Resp BP Pulse Ox 08/06/20 16:38 97.4 F 82 18 128/74 97 08/06/20 14:42 96.5 F L 85 24 H 122/75 97 - My Orders Last 24 Hours: My Active Orders 08/06/20 15:00 Peripheral IV Insertion Adult [OM.PC] Stat - Assessment/Plan Last 24 Hours: My Active Orders 08/06/20 15:00 Peripheral IV Insertion Adult [OM.PC] Stat
[2020-08-06] MEDS ORDERED: Albuterol/Ipratropium 3.0-0.5 MG/3 ML Neb Soln NEB ONE (15:54)
[2020-08-06 16:27] LABS: CHLORIDE,CL 100 mmol/L (98-107); SODIUM,NA 139 mmol/L (136-145)
[2020-08-06 16:28] LABS: ANION GAP 11.3 mmol/L (10-20)
--- NOTE | 2020-08-06 16:28 | CR ---
[id number] RAD/RAD Chest PA And Lateral EXAM: RAD Chest PA And Lateral CLINICAL DATA: CHEST PAIN SHORTNESS OF BREATH COMPARISON: CORRELATION IS MADE WITH 2014 FINDINGS: The lungs are clear The cardiac silhouette is stable A pacemaker defibrillator is seen IMPRESSION: NO PNEUMONIA OR EDEMA Reid Cam MD 08/06/20 [id number] Thank you for allowing us to participate in the care of your patient.
[2020-08-06] MEDS ORDERED: Aspirin 81 MG Tab.Chew PO ONE (16:36)
[2020-08-06 16:55] VITALS: BP 128/74; PULSE 82
== END 2020-08-06 16:52 | disposition left against medical advice (07) ==
LOC: VM.ED 14:39
DX: J20.9 Acute bronchitis, unspecified (principal); R79.89 Other specified abnormal findings of blood chemistry; I10 Essential (primary) hypertension; I25.2 Old myocardial infarction; M10.9 Gout, unspecified; G25.81 Restless legs syndrome; I25.10 Atherosclerotic heart disease of native coronary artery without angina pectoris; F90.9 Attention-deficit hyperactivity disorder, unspecified type; Z79.899 Other long term (current) drug therapy; E78.00 Pure hypercholesterolemia, unspecified; Z87.891 Personal history of nicotine dependence; Z20.828 Contact with and (suspected) exposure to other viral communicable diseases; Z88.5 Allergy status to narcotic agent; Z91.030 Bee allergy status
CPT/HCPCS: 36415; 71046; 80053; 83880; 84484; 85025; 86140; 93005; 93010; 94640; 99284; 99284-25; A9270-GY; J7620-GY; U0002

== ENCOUNTER 2020-08-06 19:54 | Emergency (ER) | payer MEDICAID ==
--- NOTE | 2020-08-06 20:32 | EDM.PDOC ---
ED HPI GENERAL MEDICAL PROBLEM - General Stated Complaint: recheck troponin Time Seen by Provider: 08/06/20 20:10 Source of Information: Reports: Patient History Limitations: Reports: No Limitations - History of Present Illness INITIAL COMMENTS - FREE TEXT/NARRATIVE: Patient comes emergency department today for repeat EKG and troponin. This patient was seen 4 hours ago when he came in with shortness of breath tightness in his chest cough and congestion. He was diagnosed with acute bronchitis but had an elevation of his troponin at 0.13. He left AMA because he had to take his dog to the vet. This patient has quite extensive history of cardiac disease and some questionable underlying chronic elevation of his troponin. Although with his presentation of chest tightness I wanted to repeat a troponin although he refused and left AMA. He has felt quite well since he left just 4 hours ago. He has picked up his prednisone and his albuterol. His shortness of breath and tightness in his chest is resolved. He is not diaphoretic no nausea or vomiting. No weakness dizziness lightheadedness. No fever no chills. He has had no tachycardias or palpitations. His AICD has not fired. He did receive aspirin in his previous visit as well. - Related Data Allergies Allergy/AdvReac Type Severity Reaction Status Date / Time hydrocodone Allergy Hives Verified 08/06/20 14:52 venom-honey bee Allergy Swelling Verified 08/06/20 14:52 [bee venom (honey bee)] Home Meds: Home Meds Albuterol [Proventil HFA] 2 puff INH Q4H PRN #1 inhaler 08/04/15 [Rx] Amphetamine/Dextroamphetamine [Adderall XR] 20 mg PO DAILY 08/04/15 [History] EPINEPHrine [Epipen] 0.3 mg .XX ASDIRECTED #1 pen 08/10/15 [Rx] Aspirin 81 mg DAILY 05/03/16 [History] Clopidogrel Bisulfate [Clopidogrel] 75 mg DAILY 05/03/16 [History] Furosemide 40 mg DAILY 05/03/16 [History] Lisinopril [Prinivil] 2.5 mg BID 05/03/16 [History] Pantoprazole Sodium 40 mg DAILY 05/03/16 [History] Spironolactone 25 mg DAILY 05/03/16 [History] atorvaSTATin Calcium [Atorvastatin Calcium] 80 mg DAILY 05/03/16 [History] carvediloL [Carvedilol] 6.25 mg ASDIRECTED 05/03/16 [History] oxyCODONE 5 mg Q4H PRN 05/03/16 [History] Albuterol [Ventolin HFA] 2 puff INH Q4H #1 puff 08/06/20 [Rx] predniSONE 20 mg PO DAILY #5 tab 08/06/20 [Rx] Past Medical History Cardiovascular History: Reports: Automatic Implantable Cardioverter Defibrillators, CAD, Cardiomyopathy, High Cholesterol, Hypertension, [place], Pacemaker Musculoskeletal History: Reports: Gout, Other (See Below) Other Musculoskeletal History: Restless leg syndrome Other Neuro History: adderall XR 40 mg in the am HX ADD Psychiatric History: Reports: ADHD - Past Surgical History Cardiovascular Surgical History: Reports: AICD, Coronary Artery Stent Other Cardiovascular Surgeries/Procedures: cardiac ablation GI Surgical History: Reports: Appendectomy Musculoskeletal Surgical History: Reports: Arthroscopic Knee ED ROS GENERAL - Review of Systems Review Of Systems: Comprehensive ROS is negative, except as noted in HPI. ED EXAM, GENERAL - Physical Exam Exam: See Below Exam Limited By: No Limitations General Appearance: Alert, WD/WN, No Apparent Distress, Anxious Respiratory/Chest: No Respiratory Distress, Lungs Clear, Normal Breath Sounds, No Accessory Muscle Use, Chest Non-Tender Cardiovascular: Normal Peripheral Pulses, Regular Rate, Rhythm Peripheral Pulses: 2+: Radial (L), Radial (R), Posterior Tibial (L), Posterior Tibial (R), Dorsalis Pedis (L), Dorsalis Pedis (R) GI/Abdominal: Normal Bowel Sounds, Soft, Non-Tender Back Exam: Normal Inspection, Full Range of Motion Extremities: Normal Inspection, Normal Range of Motion, Non-Tender, No Pedal Edema, Normal Capillary Refill Neurological: Alert, Oriented, Normal Cognition, No Motor/Sensory Deficits Psychiatric: Anxious Skin Exam: Warm, Dry, Intact, Normal Color, No Rash #1 Interpretation EKG Date: 08/06/20 Time: 20:00 Rhythm: NSR Rate (Beats/Min): 86 [place]: Normal P-Wave: Present QRS: Normal ST-T: Normal QT: Normal Comparison: No Change Course - Vital Signs Last Recorded V/S: Last Vital Signs Temp 97.5 F 08/06/20 20:05 Pulse 95 08/06/20 20:05 Resp 16 08/06/20 20:05 BP 121/81 08/06/20 20:05 Pulse Ox 96 08/06/20 20:05 - Orders/Labs/Meds Labs: Laboratory Tests 08/06/20 Range/Units 20:08 Troponin I 0.124 H* (<=0.056) ng/mL - Re-Assessments/Exams Free Text/Narrative Re-Assessment/Exam: EKG is unchanged from his previous. Labs are drawn. To repeat his troponin. Surprisingly this patient does not want to stick around and wait for the results. He is understanding the risk of from a heart attack worsening cardiac disease cardiac ischemia. He is alert appropriate and understanding. He really wants to go spend time with his family. There is no confusion. He signed his AMA paperwork and he left. I will contact him if he has any change in his troponin. Repeat troponin 0.124 which is down from 0.13 Called and contacted the patient at home and informed him that his troponin is improved and he most likely has some chronic elevation of his troponin due to his cardiac history. Discharge instructions as previously from his first visit today. His questions were answered and he is comfortable with this plan. Departure - Departure Time of Disposition: 20:21 Disposition: Against Medical Advice 07 Clinical Impression: Elevated troponin, Bronchitis - Discharge Information Referrals: Danie Reid NP [Primary Care Provider] - Forms: ED Department Discharge Additional Instructions: I will call you with the troponin results. Return if any new or worsening symptoms. Continue medications as previously. Sepsis Event Note (ED) - Focused Exam Vital Signs: Vital Signs Temp Pulse Resp BP Pulse Ox 08/06/20 20:05 97.5 F 95 16 121/81 96
[2020-08-06 21:07] VITALS: BP 121/81; PULSE 95
== END 2020-08-06 20:25 | disposition left against medical advice (07) ==
LOC: VM.ED 19:54
DX: J40 Bronchitis, not specified as acute or chronic (principal); R79.89 Other specified abnormal findings of blood chemistry; I25.10 Atherosclerotic heart disease of native coronary artery without angina pectoris; E78.00 Pure hypercholesterolemia, unspecified; I10 Essential (primary) hypertension; I25.2 Old myocardial infarction; M10.9 Gout, unspecified; F90.9 Attention-deficit hyperactivity disorder, unspecified type; Z88.5 Allergy status to narcotic agent; Z91.030 Bee allergy status; Z79.82 Long term (current) use of aspirin; Z79.02 Long term (current) use of antithrombotics/antiplatelets; Z79.899 Other long term (current) drug therapy
CPT/HCPCS: 36415; 84484; 93005; 93010; 99284; 99285-25

== ENCOUNTER 2021-01-28 02:00 | Emergency (ER) | payer MEDICAID ==
[2021-01-28] MEDS ORDERED: Sodium Chloride 0.9% 1,000 ML IV ONE (02:05)
[2021-01-28] MEDS ORDERED: Sodium Chloride 0.9% 10 ML Syringe FLUSH PRN (02:14)
[2021-01-28] MEDS ORDERED: Aspirin 81 MG Tab.Chew PO ONE (02:30)
[2021-01-28] MEDS ORDERED: Amiodarone 150 MG/3 ML SDV IVPUSH ONE (02:39)
--- NOTE | 2021-01-28 02:59 | EDM.PDOC ---
ED HPI GENERAL MEDICAL PROBLEM - General Time Seen by Provider: 01/28/21 02:12 Source of Information: Reports: Patient, Family - History of Present Illness INITIAL COMMENTS - FREE TEXT/NARRATIVE: Trey is a 50 y/o male who comes to the ER with complaints of chest palpitations and pressure that he reports started about an hour ago when he was getting ready to go to bed. He reports that his heart is pounding fast and he feels like his AICD is going to discharge. It has discharged in the past, but he denies that it has yet tonight. He reports taking his meds, but has a history of medication non-compliance. He was taken off of his amiodorone in November, but it is unclear why. He was last seen by the [facility] Cariology group in May 2020 at which time he had an Ablation and his EF was 25-30%. - Related Data Allergies Allergy/AdvReac Type Severity Reaction Status Date / Time hydrocodone Allergy Hives Verified 08/06/20 14:52 venom-honey bee Allergy Swelling Verified 08/06/20 14:52 [bee venom (honey bee)] Home Meds: Home Meds Albuterol [Proventil HFA] 2 puff INH Q4H PRN #1 inhaler 08/04/15 [Rx] Amphetamine/Dextroamphetamine [Adderall XR] 20 mg PO DAILY 08/04/15 [History] EPINEPHrine [Epipen] 0.3 mg .XX ASDIRECTED #1 pen 08/10/15 [Rx] Aspirin 81 mg DAILY 05/03/16 [History] Clopidogrel Bisulfate [Clopidogrel] 75 mg DAILY 05/03/16 [History] Furosemide 40 mg DAILY 05/03/16 [History] Lisinopril [Prinivil] 2.5 mg BID 05/03/16 [History] Pantoprazole Sodium 40 mg DAILY 05/03/16 [History] Spironolactone 25 mg DAILY 05/03/16 [History] atorvaSTATin Calcium [Atorvastatin Calcium] 80 mg DAILY 05/03/16 [History] carvediloL [Carvedilol] 6.25 mg ASDIRECTED 05/03/16 [History] oxyCODONE 5 mg Q4H PRN 05/03/16 [History] Albuterol [Ventolin HFA] 2 puff INH Q4H #1 puff 08/06/20 [Rx] predniSONE 20 mg PO DAILY #5 tab 08/06/20 [Rx] Past Medical History Cardiovascular History: Reports: Automatic Implantable Cardioverter D efibrillators, CAD, Cardiomyopathy, High Cholesterol, Hypertension, [place], Pacemaker Musculoskeletal History: Reports: Gout, Other (See Below) Other Musculoskeletal History: Restless leg syndrome Other Neuro History: adderall XR 40 mg in the am HX ADD Psychiatric History: Reports: ADHD - Past Surgical History Cardiovascular Surgical History: Reports: AICD, Coronary Artery Stent Other Cardiovascular Surgeries/Procedures: cardiac ablation GI Surgical History: Reports: Appendectomy Musculoskeletal Surgical History: Reports: Arthroscopic Knee Review of Systems - Review of Systems Review Of Systems: See Below Constitutional: Reports: Diaphoresis (mild) Eyes: Reports: No Symptoms Ears: Reports: No Symptoms Nose: Reports: No Symptoms Mouth/Throat: Reports: No Symptoms Respiratory: Reports: Shortness of Breath (mildly) Cardiovascular: Reports: Chest Pain ("pressure"), Palpitations GI/Abdominal: Reports: No Symptoms Genitourinary: Reports: No Symptoms Musculoskeletal: Reports: No Symptoms Skin: Reports: Diaphoresis Neurological: Reports: No Symptoms Psychiatric: Reports: Anxiety ED EXAM, GENERAL - Physical Exam Exam: See Below General Appearance: Alert, WD/WN, No Apparent Distress (Adult male), Anxious Eye Exam: Bilateral Eye: PERRL Ears: Normal External Exam, Hearing Grossly Normal Nose: Normal Inspection Throat/Mouth: Normal Inspection, Normal Voice Head: Atraumatic, Normocephalic Neck: Supple Respiratory/Chest: No Respiratory Distress, Lungs Clear, Other (note well healed surgical scars to chest) Cardiovascular: Tachycardia GI/Abdominal: Normal Bowel Sounds, Soft (Male) Exam: Deferred Rectal (Males) Exam: Deferred Back Exam: Normal Inspection Extremities: Normal Inspection Neurological: Alert, Oriented, CN II-XII Intact Psychiatric: Anxious Skin Exam: Warm, Normal Color, No Rash, Diaphoretic (mildly) Lymphatic: No Adenopathy #1 Interpretation EKG Date: 01/28/21 Time: 02:04 Rhythm: Other (Wide Complex Tachycardia) Rate (Beats/Min): 156 P-Wave: Present Comparison: Change From Previous EKG EKG Interpretation Comments: EKG reviewed with Dr Thomas, Cardiology at [facility] and compared to previous studies, Probable Wide Complex Tachycardia Course - Vital Signs Text/Narrative:: 0200 The patient was seen by the [facility]. Labs and EKG were ordered upon arrival. Patient was given a saline bolus and oxygen placed. Noted his rate was in the 155-160 range and sustained. ASA 324mg po [facility] ordered. [facility] Thomas, Cardiology operation shift supervisor was consulted regarding this case. EKGs were sent and reviewed with Dr Thomas. He felt this was a wide complex tachycardia and Amiodorone 150mg IVP was given. Will then start Amiodorone gtt after the IVP med. 0220 [facility]a accepted the patient for transport to [facility]. 0300 Patient anxious, Lorazepam 1mg IVP ordered. Also nauseated so Zofran 4 mg IVP ordered. Repeat Troponin ordered 30 minutes after initial level as recommended by Dr Thomas. 0335 [facility] to bedside to package pt for transport. Amiodorone gtt infusing. Recent BP 124/104. Rate still in the 155-160 range. Labs starting to result CBC Hgb=15.9, Hct=48.9, WBC=11.0, Jvc=288; INR=0.9, PTT=25.2, Troponin I=172 and other labs pending on patient departure from the ER. - Orders/Labs/Meds Orders: Active Orders 24 hr Category Date Time Status EKG Documentation Completion [RC] STAT Care 01/28/21 03:02 Ordered COMPREHENSIVE METABOLIC PN,CMP [CHEM] Stat Lab 01/28/21 02:14 Ordered CULTURE BLOOD [BC] Stat Lab 01/28/21 02:14 Ordered CULTURE BLOOD [BC] Stat Lab 01/28/21 02:14 Ordered MAGNESIUM [CHEM] Stat Lab 01/28/21 02:14 Ordered PRO B-TYPE NATRIUR PEPT,BNPPRO [CHEM] Stat Lab 01/28/21 02:14 Ordered TROPONIN I HIGH SENSITIVITY [CHEM] Stat Lab 01/28/21 02:14 Ordered TROPONIN I HIGH SENSITIVITY [CHEM] Stat Lab 01/28/21 03:02 Ordered Amiodarone In Dextrose,Iso-Osm [Nexterone in Dextrose Med 01/28/21 02:45 Active 360 MG/200 ML] 360 mg in 200 ml IV ASDIRECTED Sodium Chloride 0.9% [Saline Flush] Med 01/28/21 02:14 Active 10 ml FLUSH ASDIRECTED PRN Blood Culture x2 Reflex Set [OM.PC] Stat Oth 01/28/21 02:14 Ordered Saline Lock Insert [OM.PC] Stat Oth 01/28/21 02:14 Ordered Medication Orders Amiodarone HCl/Dextrose (Nexterone In Dextrose 360 Mg/200 Ml) 360 mg in 200 mls @ 33.333 mls/hr IV ASDIRECTED WIL; Protocol Sodium Chloride (Sodium Chloride 0.9% 10 Ml Syringe) 10 ml FLUSH ASDIRECTED PRN PRN Reason: Keep Vein Open Labs: Laboratory Tests 01/28/21 01/28/21 Range/Units 02:10 02:10 WBC 11.0 H (4.0-10.0) x10^3/uL RBC 5.94 (4.5-6.0) x10^6/uL Hgb 15.9 D (14.0-18.0) g/dL Hct 48.9 (40.0-52.0) % MCV 82.3 (78.0-93.0) fL MCH 26.8 (26.0-32.0) pg MCHC 32.5 (32.0-36.0) g/dL RDW Coeff of Demar 15.2 H (10.0-15.0) % Plt Count 279 D (130-400) x10^3/uL Neut % (Auto) 68.4 (50.0-80.0) % Lymph % (Auto) 18.9 L (25.0-50.0) % Meagher % (Auto) 10.0 (2.0-11.0) % Eos % (Auto) 2.5 (0.0-4.0) % Baso % (Auto) 0.2 (0.2-1.2) % PT 10.4 (9.9-12.5) SEC INR 0.9 L (2.0-3.5) APTT 25.2 L (25.6-32.8) SEC Meds: Medications Generic Name Dose Route Start Last Admin Trade Name Freq PRN Reason Stop Dose Admin Amiodarone HCl/Dextrose 360 mg in 200 mls @ 33.333 mls/hr 01/28/21 02:45 Nexterone In Dextrose 360 Mg/200 Ml IV ASDIRECTED WIL Protocol Sodium Chloride 10 ml 01/28/21 02:14 Sodium Chloride 0.9% 10 Ml Syringe FLUSH ASDIRECTED PRN Keep Vein Open Discontinued Medications Generic Name Dose Route Start Last Admin Trade Name Freq PRN Reason Stop Dose Admin Amiodarone HCl 150 mg 01/28/21 02:39 Amiodarone 150 Mg/3 Ml Sdv IVPUSH 01/28/21 02:40 ONETIME ONE Aspirin 324 mg 01/28/21 02:30 Aspirin 81 Mg Tab.Chew PO 01/28/21 02:31 ONETIME ONE Lorazepam 1 mg 01/28/21 03:07 Lorazepam 2 Mg/Ml Sdv IVPUSH 01/28/21 03:08 STAT ONE Ondansetron HCl 4 mg 01/28/21 03:20 Ondansetron 4 Mg/2 Ml Sdv IVPUSH 01/28/21 03:21 ONETIME ONE Departure - Departure Time of Disposition: 02:40 Disposition: DC/Tfer to Acute Hospital 02 Condition: Good Clinical Impression: Wide-complex tachycardia, Elevated troponin I level Cardiomyopathy Qualifiers: Cardiomyopathy type: unspecified Qualified Code(s): I42.9 - Cardiomyopathy, unspecified - Discharge Information Forms: Interfacility Transfer EMTALA Additional Instructions: -Transfer to [facility] to ICU to [facility] and Martha via [facility] - My Orders Last 24 Hours: My Active Orders 01/28/21 02:14 COMPREHENSIVE METABOLIC PN,CMP [CHEM] Stat CULTURE BLOOD [BC] Stat CULTURE BLOOD [BC] Stat MAGNESIUM [CHEM] Stat PRO B-TYPE NATRIUR PEPT,BNPPRO [CHEM] Stat TROPONIN I HIGH SENSITIVITY [CHEM] Stat Sodium Chloride 0.9% [Saline Flush] 10 ml FLUSH ASDIRECTED PRN Blood Culture x2 Reflex Set [OM.PC] Stat Saline Lock Insert [OM.PC] Stat 01/28/21 02:45 Amiodarone In Dextrose,Iso-Osm [Nexterone in Dextrose 360 MG/200 ML] 360 mg in 200 ml IV ASDIRECTED 01/28/21 03:02 EKG Documentation Completion [RC] STAT TROPONIN I HIGH SENSITIVITY [CHEM] Stat - Assessment/Plan Last 24 Hours: My Active Orders 01/28/21 02:14 COMPREHENSIVE METABOLIC PN,CMP [CHEM] Stat CULTURE BLOOD [BC] Stat CULTURE BLOOD [BC] Stat MAGNESIUM [CHEM] Stat PRO B-TYPE NATRIUR PEPT,BNPPRO [CHEM] Stat TROPONIN I HIGH SENSITIVITY [CHEM] Stat Sodium Chloride 0.9% [Saline Flush] 10 ml FLUSH ASDIRECTED PRN Blood Culture x2 Reflex Set [OM.PC] Stat Saline Lock Insert [OM.PC] Stat 01/28/21 02:45 Amiodarone In Dextrose,Iso-Osm [Nexterone in Dextrose 360 MG/200 ML] 360 mg in 200 ml IV ASDIRECTED 01/28/21 03:02 EKG Documentation Completion [RC] STAT TROPONIN I HIGH SENSITIVITY [CHEM] Stat
[2021-01-28] MEDS ORDERED: LORazepam 2 MG/ML SDV IVPUSH ONE (03:07)
[2021-01-28] MEDS ORDERED: Ondansetron 4 MG/2 ML SDV IVPUSH ONE (03:20)
[2021-01-28 03:25] LABS: PTT,PARTIAL THROMBOPLSTIN TIME 25.2 SEC (25.6-32.8)
[2021-01-28 03:38] LABS: CHLORIDE,CL 101 mmol/L (98-107); SODIUM,NA 142 mmol/L (136-145)
[2021-01-28 03:39] LABS: ANION GAP 12.3 mmol/L (5-15)
== END 2021-01-28 03:50 | disposition short-term general hospital (02) ==
LOC: VM.ED 02:00
DX: R00.0 Tachycardia, unspecified (principal); R79.89 Other specified abnormal findings of blood chemistry; I10 Essential (primary) hypertension; I25.2 Old myocardial infarction; E78.00 Pure hypercholesterolemia, unspecified; M10.9 Gout, unspecified; G25.81 Restless legs syndrome; I25.10 Atherosclerotic heart disease of native coronary artery without angina pectoris; Z79.82 Long term (current) use of aspirin; Z79.02 Long term (current) use of antithrombotics/antiplatelets; Z79.899 Other long term (current) drug therapy; Z88.5 Allergy status to narcotic agent; Z91.030 Bee allergy status
CPT/HCPCS: 36415; 80053; 83735; 83880; 84484; 85025; 85610; 85730; 87040; 93005; 93010; 96365; 96375; 99284; 99285-25; A9270-GY; J0282; J2060; J2405; J7030

== ENCOUNTER 2021-02-28 18:51 | Emergency (ER) | payer MEDICAID ==
[2021-02-28] MEDS ORDERED: Amiodarone 150 MG/3 ML SDV IVPUSH ONE (19:18)
[2021-02-28] MEDS ORDERED: Sodium Chloride 0.9% 1,000 ML IV SCH (19:30)
--- NOTE | 2021-02-28 19:41 | EDM.PDOC ---
ED HPI GENERAL MEDICAL PROBLEM - General Chief Complaint: Cardiovascular Problem Stated Complaint: HEART PROBLEMS Time Seen by Provider: 02/28/21 18:51 Source of Information: Reports: Patient History Limitations: Reports: No Limitations - History of Present Illness INITIAL COMMENTS - FREE TEXT/NARRATIVE: Trey is a 50 year old male who presents to ER with complaints of "heart racing again". Has history of cardiomyopathy, CHF. Was eating supper about an hour ago and "his heart just sped up" and is worried that his AICD will discharge. relates it is set to defibrillate at 160. Has discharged 8 times in the past but none since August. Followed by [facility] cardiology. Was taken off his Amiodarone in November as "had been on it too long" and this is the second event of tachycardia. Was transferred a month ago due to same concern. Was given IV Amiodarone at that time. Had angiogram and stent placement done at that time. States has been taking his medications. No change in routine today. Patient admits to chest discomfort, pressure. Short of breath as a result. Admits to being anxious and worried about defibrillator. Onset: Today, Sudden Duration: Minutes:, Constant Location: Reports: Chest Quality: Reports: Ache, Dull Severity: Mild Improves with: Reports: None Associated Symptoms: Reports: Chest Pain, Diaphoresis, Shortness of Breath. Denies: Confusion, Cough, Fever/Chills, Loss of Appetite, Nausea/Vomiting - Related Data Allergies Allergy/AdvReac Type Severity Reaction Status Date / Time hydrocodone Allergy Hives Verified 01/28/21 05:50 venom-honey bee Allergy Swelling Verified 01/28/21 05:50 [bee venom (honey bee)] Home Meds: Home Meds Albuterol [Proventil HFA] 2 puff INH Q4H PRN #1 inhaler 08/04/15 [Rx] Amphetamine/Dextroamphetamine [Adderall XR] 20 mg PO DAILY 08/04/15 [History] EPINEPHrine [Epipen] 0.3 mg .XX ASDIRECTED #1 pen 08/10/15 [Rx] Aspirin 81 mg DAILY 05/03/16 [History] Clopidogrel Bisulfate [Clopidogrel] 75 mg DAILY 05/03/16 [History] Furosemide 40 mg DAILY 05/03/16 [History] Lisinopril [Prinivil] 2.5 mg BID 05/03/16 [History] Pantoprazole Sodium 40 mg DAILY 05/03/16 [History] Spironolactone 25 mg DAILY 05/03/16 [History] atorvaSTATin Calcium [Atorvastatin Calcium] 80 mg DAILY 05/03/16 [History] carvediloL [Carvedilol] 6.25 mg ASDIRECTED 05/03/16 [History] oxyCODONE 5 mg Q4H PRN 05/03/16 [History] Albuterol [Ventolin HFA] 2 puff INH Q4H #1 puff 08/06/20 [Rx] predniSONE 20 mg PO DAILY #5 tab 08/06/20 [Rx] Past Medical History Cardiovascular History: Reports: Automatic Implantable Cardioverter Defibrillators, CAD, Cardiomyopathy, High Cholesterol, Hypertension, [place], Pacemaker Musculoskeletal History: Reports: Gout, Other (See Below) Other Musculoskeletal History: Restless leg syndrome Other Neuro History: adderall XR 40 mg in the am HX ADD Psychiatric History: Reports: ADHD - Past Surgical History Cardiovascular Surgical History: Reports: AICD, Coronary Artery Stent Other Cardiovascular Surgeries/Procedures: cardiac ablation GI Surgical History: Reports: Appendectomy Musculoskeletal Surgical History: Reports: Arthroscopic Knee Social & Family History - Tobacco Use Tobacco Use Status *Q: Unknown Ever Used Tobacco ED ROS GENERAL - Review of Systems Review Of Systems: See Below Constitutional: Reports: Malaise, Weakness, Fatigue. Denies: Fever, Chills HEENT: Denies: Ear Pain, Sinus Problem, Throat Pain Respiratory: Reports: Shortness of Breath. Denies: Cough Cardiovascular: Reports: Chest Pain, Edema. Denies: Lightheadedness Endocrine: Reports: Fatigue GI/Abdominal: Denies: Abdominal Pain, Constipation, Diarrhea, Nausea, Vomiting : Reports: No Symptoms Musculoskeletal: Reports: No Symptoms Skin: Reports: No Symptoms Neurological: Reports: No Symptoms ED EXAM, GENERAL - Physical Exam Exam: See Below Exam Limited By: No Limitations General Appearance: Alert, WD/WN, Anxious, Mild Distress Ears: Normal External Exam, Normal TMs Nose: Normal Inspection, Normal Mucosa, No Blood Throat/Mouth: Normal Inspection, Normal Oropharynx Head: Normocephalic Neck: Normal Inspection, Supple, Non-Tender Respiratory/Chest: No Respiratory Distress, Lungs Clear, Normal Breath Sounds Cardiovascular: Tachycardia GI/Abdominal: Normal Bowel Sounds, Soft, Non-Tender Extremities: Pedal Edema (1+) Neurological: Alert, Oriented Skin Exam: Warm, Dry #1 Interpretation EKG Date: 02/28/21 Rhythm: Other (wide complex tachycardia) QRS: Wide ST-T: Normal Comparison: No Change Course - Orders/Labs/Meds Orders: Active Orders 24 hr Category Date Time Status Chest 1V Frontal [CR] Stat Exams 02/28/21 20:38 Ordered Chest 2V [CR] Stat Exams 02/28/21 19:12 Stop Req Amiodarone In Dextrose,Iso-Osm [Nexterone in Dextrose Med 02/28/21 20:00 Active 360 MG/200 ML] 360 mg in 200 ml IV ASDIRECTED LORazepam [Ativan] Med 02/28/21 20:00 Active 1 mg PO BEDTIME Sodium Chloride 0.9% [Normal Saline] 1,000 ml Med 02/28/21 19:30 Active IV ASDIRECTED Medication Orders Sodium Chloride (Normal Saline) 1,000 mls @ 250 mls/hr IV ASDIRECTED WIL Last Admin: 02/28/21 19:20 Dose: 250 mls/hr Documented by: SUNDAY Amiodarone HCl/Dextrose (Nexterone In Dextrose 360 Mg/200 Ml) 360 mg in 200 mls @ 33.333 mls/hr IV ASDIRECTED WIL; Protocol Last Admin: 02/28/21 20:00 Dose: 33.333 mls/hr Documented by: SUNDAY Lorazepam (Lorazepam 1 Mg Tab) 1 mg PO BEDTIME WIL Last Admin: 02/28/21 19:30 Dose: 1 mg Documented by: SUNDAY Labs: Laboratory Tests 02/28/21 02/28/21 Range/Units 19:43 19:43 WBC 8.4 (4.0-10.0) x10^3/uL RBC 5.11 (4.5-6.0) x10^6/uL Hgb 13.8 L D (14.0-18.0) g/dL Hct 42.2 (40.0-52.0) % MCV 82.6 (78.0-93.0) fL MCH 27.0 (26.0-32.0) pg MCHC 32.7 (32.0-36.0) g/dL RDW Coeff of Demar 14.3 (10.0-15.0) % Plt Count 248 (130-400) x10^3/uL Neut % (Auto) 71.3 (50.0-80.0) % Lymph % (Auto) 14.2 L (25.0-50.0) % Archuleta % (Auto) 11.8 H (2.0-11.0) % Eos % (Auto) 2.3 (0.0-4.0) % Baso % (Auto) 0.4 (0.2-1.2) % Sodium 140 (136-145) mmol/L Potassium 4.0 (3.5-5.1) mmol/L Chloride 103 (98-107) mmol/L Carbon Dioxide 32 (21-32) mmol/L Anion Gap 9.0 (5-15) mmol/L BUN 24 H (7-18) mg/dL Creatinine 1.7 H (0.70-1.30) mg/dL Est Cr Clr Drug Dosing TNP Estimated GFR (MDRD) 43 Glucose 134 H (70-99) mg/dL Calcium 8.8 (8.5-10.1) mg/dL Corrected Calcium 9.6 (8.5-10.1) mg/dL Total Bilirubin 0.3 (0.2-1.0) mg/dL AST 17 (15-37) U/L ALT 28 (16-63) U/L Alkaline Phosphatase 84 (46-116) U/L Lactate Dehydrogenase 172 (85-227) U/L Creatine Kinase 84 (39-308) U/L Troponin I High Sens 114 H* (<=76) ng/L C-Reactive Protein 2.9 H (<=0.9) mg/dL NT-Pro-B Natriuret Pep 467 H (<=125) pg/mL Total Protein 7.5 (6.4-8.2) g/dL Albumin 3.0 L (3.4-5.0) g/dL Globulin 4.5 Albumin/Globulin Ratio 0.67 Meds: Medications Generic Name Dose Route Start Last Admin Trade Name Freq PRN Reason Stop Dose Admin Sodium Chloride 1,000 mls @ 250 mls/hr 02/28/21 19:30 02/28/21 19:20 Normal Saline IV 250 mls/hr ASDIRECTED WIL Administration Amiodarone HCl/Dextrose 360 mg in 200 mls @ 33.333 mls/hr 02/28/21 20:00 02/28/21 20:00 Nexterone In Dextrose 360 Mg/200 Ml IV 33.333 mls/hr ASDIRECTED WIL Administration Protocol Lorazepam 1 mg 02/28/21 20:00 02/28/21 19:30 Lorazepam 1 Mg Tab PO 1 mg BEDTIME WIL Administration Discontinued Medications Generic Name Dose Route Start Last Admin Trade Name Jewel PRN Reason Stop Dose Admin Amiodarone HCl 150 mg 02/28/21 19:18 02/28/21 19:31 Amiodarone 150 Mg/3 Ml Sdv IVPUSH 02/28/21 19:19 150 mg ONETIME ONE Administration - Re-Assessments/Exams Free Text/Narrative Re-Assessment/Exam: 02/28/21 1920 Assessment completed on patient. REmains tachycardic. Suggested bearing down or holding breath to try to lower heart rate but refuses. Is anxious. Dr. Rouse of [facility] ER notified of patient condition. Suggested to give the IV Amidodarone and ativan as was previously given and accepted the patient in transfer. Patient notified. Is angry about these events, frustrated that continues to have these concerns. 02/28/21 20:02 No change in heart rhythm. Amiodarone drip initiated. Waiting on labs, will arrange transfer once received to [facility] 02/28/21 20:39 heart rate remains 150s. Departure - Departure Time of Disposition: 20:40 Disposition: DC/Tfer to Acute Hospital 02 Reason for Transfer *Q: Other (cardiac care) Condition: Fair Clinical Impression: Wide-complex tachycardia, Elevated troponin Referrals: Danie Reid NP [Primary Care Provider] - Forms: ED Department Discharge, Interfacility Transfer EMTALA - My Orders Last 24 Hours: My Active Orders 02/28/21 19:12 Chest 2V [CR] Stat 02/28/21 19:30 Sodium Chloride 0.9% [Normal Saline] 1,000 ml IV ASDIRECTED 02/28/21 20:00 Amiodarone In Dextrose,Iso-Osm [Nexterone in Dextrose 360 MG/200 ML] 360 mg in 200 ml IV ASDIRECTED LORazepam [Ativan] 1 mg PO BEDTIME 02/28/21 20:38 Chest 1V Frontal [CR] Stat - Assessment/Plan Last 24 Hours: My Active Orders 02/28/21 19:12 Chest 2V [CR] Stat 02/28/21 19:30 Sodium Chloride 0.9% [Normal Saline] 1,000 ml IV ASDIRECTED 02/28/21 20:00 Amiodarone In Dextrose,Iso-Osm [Nexterone in Dextrose 360 MG/200 ML] 360 mg in 200 ml IV ASDIRECTED LORazepam [Ativan] 1 mg PO BEDTIME 02/28/21 20:38 Chest 1V Frontal [CR] Stat
[2021-02-28] MEDS ORDERED: LORazepam 1 MG Tab PO SCH (20:00)
[2021-02-28 20:36] LABS: CHLORIDE,CL 103 mmol/L (98-107); SODIUM,NA 140 mmol/L (136-145)
[2021-02-28 21:02] VITALS: PULSE 154
[2021-02-28 21:04] VITALS: BP 98/0
--- NOTE | 2021-03-02 08:09 | CR ---
[id number] RAD/RAD Chest PA or AP 1V EXAM: FRONTAL CHEST INDICATION: Chest pain. COMPARISON: August 06, 2020. DISCUSSION: There is cardiomegaly with borderline central vascular congestion. Left subclavian approach pacemaker/ICD lead right ventricle. No effusions. IMPRESSION: 1. Cardiomegaly with borderline central vascular congestion. Buzz Kohler MD 03/02/21 0808 Thank you for allowing us to participate in the care of your patient.
== END 2021-02-28 20:56 | disposition short-term general hospital (02) ==
LOC: VM.ED 18:51
DX: R00.0 Tachycardia, unspecified (principal); R79.89 Other specified abnormal findings of blood chemistry; I25.10 Atherosclerotic heart disease of native coronary artery without angina pectoris; E78.00 Pure hypercholesterolemia, unspecified; I10 Essential (primary) hypertension; I25.2 Old myocardial infarction; M10.9 Gout, unspecified; Z79.82 Long term (current) use of aspirin; Z79.02 Long term (current) use of antithrombotics/antiplatelets; Z79.899 Other long term (current) drug therapy; Z88.5 Allergy status to narcotic agent; Z91.030 Bee allergy status
CPT/HCPCS: 36415; 71045; 80053; 82550; 83615; 83880; 84484; 85025; 86140; 93010; 96365; 99284; 99285-25; A9270-GY; J0282; J7030

== ENCOUNTER 2021-09-11 10:40 | Emergency (ER) | payer MEDICARE, MEDICAID ==
[2021-09-11] MEDS ORDERED: Sodium Chloride 0.9% 10 ML Syringe FLUSH PRN (10:49)
[2021-09-11] MEDS ORDERED: HYDROmorphone 1 MG/ML Syringe IVPUSH ONE (10:58)
[2021-09-11] MEDS ORDERED: Ondansetron 4 MG/2 ML SDV IVPUSH ONE (10:58)
[2021-09-11 11:28] LABS: ANION GAP 10.1 mmol/L (5-15); CHLORIDE,CL 104 mmol/L (98-107); SODIUM,NA 144 mmol/L (136-145)
[2021-09-11] MEDS ORDERED: Heparin Sodium/0.45% NaCl 25,000 UNITS/500 ML BAG IV STA (12:09)
[2021-09-11] MEDS ORDERED: Heparin Sodium 5,000 Units/ML Vial IVPUSH ONE (12:09)
[2021-09-11] MEDS ORDERED: Nitroglycerin 2% Oint 1 GM UD Packet TOP ONE (12:15)
[2021-09-11] MEDS ORDERED: Metoclopramide 10 MG/2 ML SDV IVPUSH ONE (12:58)
[2021-09-11 13:25] VITALS: PULSE 74
[2021-09-11] MEDS ORDERED: Acetaminophen 500 MG Tab PO ONE (16:17)
[2021-09-11 17:20] VITALS: BP 127/75
== END 2021-09-11 16:28 | disposition short-term general hospital (02) ==
LOC: VM.ED 10:40
DX: I21.4 Non-ST elevation (NSTEMI) myocardial infarction (principal); R79.89 Other specified abnormal findings of blood chemistry; R10.13 Epigastric pain; I25.10 Atherosclerotic heart disease of native coronary artery without angina pectoris; E78.00 Pure hypercholesterolemia, unspecified; I10 Essential (primary) hypertension; M10.9 Gout, unspecified; Z88.5 Allergy status to narcotic agent; Z91.030 Bee allergy status; Z79.82 Long term (current) use of aspirin; Z79.899 Other long term (current) drug therapy
CPT/HCPCS: 36415; 74022; 80053; 82150; 83690; 83735; 83880; 84100; 84484; 85025; 85610; 86140; 93005; 96365; 96366; 96375; 99285; A9270; J1170; J1644; J2405; J2765; 93010; 99284

== ENCOUNTER 2021-10-02 13:57 | Emergency (ER) | payer MEDICARE, MEDICAID ==
[2021-10-02 14:38] VITALS: BP 128/76; PULSE 82
--- NOTE | 2021-10-02 20:00 | EDM.PDOC ---
ED HPI GENERAL MEDICAL PROBLEM - General Chief Complaint: ENT Problem Stated Complaint: LT EAR CAN NOT HEAR Time Seen by Provider: 10/02/21 14:10 Source of Information: Reports: Patient History Limitations: Reports: No Limitations - History of Present Illness INITIAL COMMENTS - FREE TEXT/NARRATIVE: Pt. presents to ER with complaints of decreased auditory acuity in L ear. Pt. ates that he was using q tips after he took a shower today and states that he developed acute onset of inability to hear from L ear. Denies any fever or chills. No discharge. Denies any bleeding. No lightheadedness or dizziness. Onset: Today Onset Date: 10/02/21 - Related Data Allergies Allergy/AdvReac Type Severity Reaction Status Date / Time hydrocodone Allergy Hives Verified 10/02/21 14:26 venom-honey bee Allergy Swelling Verified 10/02/21 14:26 [bee venom (honey bee)] Home Meds: Home Meds Albuterol [Proventil HFA] 2 puff INH Q4H PRN #1 inhaler 08/04/15 [Rx] EPINEPHrine [Epipen] 0.3 mg .XX ASDIRECTED #1 pen 08/10/15 [Rx] Aspirin 81 mg PO DAILY 05/03/16 [History] Furosemide 20 mg PO BID 05/03/16 [History] Spironolactone 12.5 mg PO DAILY 05/03/16 [History] atorvaSTATin Calcium [Atorvastatin Calcium] 20 mg PO DAILY 05/03/16 [History] carvediloL [Carvedilol] 12.5 mg PO BID 05/03/16 [History] Albuterol [Ventolin HFA] 2 puff INH Q4H PRN 09/11/21 [History] Amiodarone [Cordarone] 200 mg PO DAILY 09/11/21 [History] Prasugrel HCl [Effient] 10 mg PO DAILY 09/11/21 [History] Past Medical History Cardiovascular History: Reports: Automatic Implantable Cardioverter Defibrillators, CAD, Cardiomyopathy, High Cholesterol, Hypertension, [place], Pacemaker, Stents Musculoskeletal History: Reports: Gout, Other (See Below) Other Musculoskeletal History: Restless leg syndrome Other Neuro History: adderall XR 40 mg in the am HX ADD Psychiatric History: Reports: ADHD - Past Surgical History Cardiovascular Surgical History: Reports: AICD, Coronary Artery Stent Other Cardiovascular Surgeries/Procedures: cardiac ablation GI Surgical History: Reports: Appendectomy Musculoskeletal Surgical History: Reports: Arthroscopic Knee Social & Family History - Tobacco Use Tobacco Use Status *Q: Unknown Ever Used Tobacco ED ROS GENERAL - Review of Systems Review Of Systems: Comprehensive ROS is negative, except as noted in HPI. ED EXAM, GENERAL - Physical Exam Exam: See Below Exam Limited By: No Limitations General Appearance: Alert, WD/WN, No Apparent Distress Ears: Hearing Loss (L ear) Ear Exam: Bilateral Ear: Other (extensive cerumen in both ears) Nose: Normal Inspection, Normal Mucosa, No Blood Course - Vital Signs Last Recorded V/S: Last Vital Signs Temp 36.8 C 10/02/21 14:10 Pulse 82 10/02/21 14:10 Resp 18 10/02/21 14:10 BP 128/76 10/02/21 14:10 Pulse Ox 98 10/02/21 14:10 Departure - Departure Time of Disposition: 15:00 Disposition: Home, Self-Care 01 Clinical Impression: Impacted cerumen of both ears - Discharge Information Instructions: Earwax Buildup, Adult, Ear Irrigation Referrals: Danie Reid VETERINARY VIROLOGIST [Primary Care Provider] - Forms: ED Department Discharge Additional Instructions: There is no cerumen in either ear now. Use caution using q tips, as this can push wax farther into the ear canal. Follow-up in clinic/ER if you have problems hearing. Sepsis Event Note (ED) - Focused Exam Vital Signs: Vital Signs Temp Pulse Resp BP Pulse Ox 10/02/21 14:10 36.8 C 82 18 128/76 98 - Assessment/Plan Plan: Both ears were flushed utilizing warm water with the Elephant irrigation system. Pt. tolerated this well, and a large amount of cerumen was evacuated, restoring his hearing. No trauma noted to TM or canal post irrigation. Pt. was discharged. Advised to not use cotton tipped applicators in ear, as it can lead to trauma/impaction. All questions were answered.
== END 2021-10-02 14:28 | disposition home or self-care (01) ==
LOC: VM.ED 13:57
DX: H61.23 Impacted cerumen, bilateral (principal); M10.9 Gout, unspecified; E78.00 Pure hypercholesterolemia, unspecified; I10 Essential (primary) hypertension; I25.2 Old myocardial infarction; Z95.0 Presence of cardiac pacemaker; Z88.5 Allergy status to narcotic agent; Z91.030 Bee allergy status; Z79.82 Long term (current) use of aspirin; Z79.899 Other long term (current) drug therapy
CPT/HCPCS: 69209; 99282-25; 99283

== ENCOUNTER 2021-10-05 04:45 | Emergency (ER) | payer MEDICARE, MEDICAID ==
--- NOTE | 2021-10-05 05:00 | EDM.PDOC ---
ED HPI GENERAL MEDICAL PROBLEM - General Chief Complaint: Abdominal Pain Stated Complaint: abdominal pain Time Seen by Provider: 10/05/21 04:45 Source of Information: Reports: Patient History Limitations: Reports: No Limitations - History of Present Illness INITIAL COMMENTS - FREE TEXT/NARRATIVE: Patient presents emergency room with a sharp burning pain in the abdomen that started about hour or so ago. He states pain woke him up with a 10 out of 10 and his gave him a Nexium which is helped the pain dramatically he now rates his pain about a 7 out of 10. But he wanted to come get checked out emergency room. He states he did eat pizza about 1130 tonight lay down about 45 minutes afterwards. He also states he had some belching and some mild indigestion. Patient also told us that he had a coronary stent placed approximately 5 days ago this is #4 in the same artery that he has had stented before the rest of the heart was normal. He does take a aspirin daily he also takes Eliquis BID he has had prior CTs with no known history of any AAA's he does have a past history of smoking. He also has a pacemaker. He denies any chest pain shortness of breath nausea or vomiting last bowel movement was yesterday no lightheadedness or dizziness no lower extremity edema no bloody bowel movements no dark tarry stools. He has no other complaints at this time Onset: Sudden Duration: Minutes:, Improving Location: Reports: Abdomen Quality: Reports: Burning Severity: Severe Improves with: Reports: Medication Associated Symptoms: Reports: No Other Symptoms. Denies: Chest Pain, Cough, Diaphoresis, Loss of Appetite, Nausea/Vomiting, Shortness of Breath, Syncope, Weakness Right Upper Abdominal Pain Score (Numeric/FACES): 7 - Related Data Allergies Allergy/AdvReac Type Severity Reaction Status Date / Time hydrocodone Allergy Hives Verified 10/02/21 14:26 venom-honey bee Allergy Swelling Verified 10/02/21 14:26 [bee venom (honey bee)] Home Meds: Home Meds Albuterol [Proventil HFA] 2 puff INH Q4H PRN #1 inhaler 08/04/15 [Rx] EPINEPHrine [Epipen] 0.3 mg .XX ASDIRECTED #1 pen 08/10/15 [Rx] Aspirin 81 mg PO DAILY 05/03/16 [History] Furosemide 20 mg PO BID 05/03/16 [History] Spironolactone 12.5 mg PO DAILY 05/03/16 [History] atorvaSTATin Calcium [Atorvastatin Calcium] 20 mg PO DAILY 05/03/16 [History] carvediloL [Carvedilol] 12.5 mg PO BID 05/03/16 [History] Albuterol [Ventolin HFA] 2 puff INH Q4H PRN 09/11/21 [History] Amiodarone [Cordarone] 200 mg PO DAILY 09/11/21 [History] Prasugrel HCl [Effient] 10 mg PO DAILY 09/11/21 [History] Past Medical History Cardiovascular History: Reports: Automatic Implantable Cardioverter De fibrillators, CAD, Cardiomyopathy, High Cholesterol, Hypertension, CO, Pacemaker Musculoskeletal History: Reports: Gout, Other (See Below) Other Musculoskeletal History: Restless leg syndrome Other Neuro History: adderall XR 40 mg in the am HX ADD Psychiatric History: Reports: ADHD - Past Surgical History Cardiovascular Surgical History: Reports: AICD, Coronary Artery Stent Other Cardiovascular Surgeries/Procedures: cardiac ablation GI Surgical History: Reports: Appendectomy Musculoskeletal Surgical History: Reports: Arthroscopic Knee ED ROS GENERAL - Review of Systems Review Of Systems: See Below Constitutional: Reports: No Symptoms HEENT: Reports: No Symptoms Respiratory: Reports: No Symptoms Cardiovascular: Reports: No Symptoms Endocrine: Reports: No Symptoms GI/Abdominal: Reports: Abdominal Pain. Denies: Black Stool, Bloody Stool, Constipation, Diarrhea, Decreased Appetite, Difficulty Swallowing, Distension, Flatus, Hematemesis, Melena, Nausea, Vomiting : Reports: No Symptoms Musculoskeletal: Reports: No Symptoms Skin: Reports: No Symptoms Neurological: Reports: No Symptoms Psychiatric: Reports: No Symptoms Hematologic/Lymphatic: Reports: No Symptoms Immunologic: Reports: No Symptoms ED EXAM, GI/ABD - Physical Exam Exam: See Below Exam Limited By: No Limitations General Appearance: Alert, WD/WN, No Apparent Distress, Other (Patient laughing and joking during HPI and exam) Eyes: Bilateral: Normal Appearance, EOMI Ears: Hearing Grossly Normal Nose: Normal Inspection, Normal Mucosa, No Blood Throat/Mouth: Normal Inspection, Normal Lips, Normal Teeth, Normal Gums, Normal Oropharynx, Normal Voice, No Airway Compromise Head: Atraumatic, Normocephalic Neck: Normal Inspection, Supple, Non-Tender, Full Range of Motion Respiratory/Chest: No Respiratory Distress, Lungs Clear, Normal Breath Sounds, No Accessory Muscle Use, Chest Non-Tender Cardiovascular: Normal Peripheral Pulses, Regular Rate, Rhythm, No Edema, No Gallop, No JVD, No Murmur, No Rub GI/Abdominal Exam: Normal Bowel Sounds, Soft, Non-Tender, No Organomegaly, No Distention, No Abnormal Bruit, No Mass, Other (Negative psoas negative peritoneal signs). No: Guarding, Rigid, Rebound, Tender Back Exam: Normal Inspection, Full Range of Motion Extremities: Normal Inspection, Normal Range of Motion, Non-Tender, Normal Capillary Refill, Other (1+ bilateral pedal edema). No: No Pedal Edema Neurological: Alert, Oriented, CN II-XII Intact, Normal Cognition, Normal Gait, No Motor/Sensory Deficits Psychiatric: Normal Affect, Normal Mood Skin Exam: Warm, Dry, Intact, Normal Color, No Rash, Other (Patient has some scattered mottling of the skin which he states is his normal has been for years) Lymphatic: No Adenopathy #1 Interpretation EKG Date: 10/05/21 Time: 04:50 Rhythm: NSR [place]: Normal P-Wave: Present QRS: Normal ST-T: Normal QT: Normal EKG Interpretation Comments: EKG normal sinus rhythm noted old Q waves Course - Vital Signs Text/Narrative:: CBC CMP EKG troponin GI cocktail patient has had an aspirin already today EKG is normal sinus rhythm no acute findings noted there is some old Q waves throughout the EKG patient has had multiple MIs Patient was rechecked states he feels much better he is down about a 4 out of 10 for the pain and states he is okay with being discharged he states he can follow-up with his primary care provider in the morning when he takes his son to the doctor Last Recorded V/S: Last Vital Signs Temp 36.2 C 10/05/21 04:45 Pulse 102 H 10/05/21 04:45 Resp 17 10/05/21 04:45 BP 137/95 H 10/05/21 04:45 Pulse Ox 97 10/05/21 04:45 - Orders/Labs/Meds Orders: Active Orders 24 hr Category Date Time Status COMPREHENSIVE METABOLIC PN,CMP [CHEM] Stat Lab 10/05/21 04:59 Ordered TROPONIN I HIGH SENSITIVITY [CHEM] Stat Lab 10/05/21 04:53 Ordered Labs: Laboratory Tests 10/05/21 Range/Units 05:15 WBC 7.8 (4.0-10.0) x10^3/uL RBC 5.25 (4.5-6.0) x10^6/uL Hgb 14.7 (14.0-18.0) g/dL Hct 44.1 (40.0-52.0) % MCV 84.0 (78.0-93.0) fL MCH 28.0 (26.0-32.0) pg MCHC 33.3 (32.0-36.0) g/dL RDW Coeff of Demar 13.9 (10.0-15.0) % Plt Count 263 (130-400) x10^3/uL Immature Gran % (Auto) 0.10 (0.00-0.43) % Neut % (Auto) 74.0 (50.0-80.0) % Lymph % (Auto) 14.7 L (25.0-50.0) % Dunn % (Auto) 8.1 (2.0-11.0) % Eos % (Auto) 2.6 (0.0-4.0) % Baso % (Auto) 0.5 (0.2-1.2) % Neut # (Auto) 5.7 (1.8-7.7) x10^3/uL Lymph # (Auto) 1.1 (1.0-4.8) x10^3/uL Dunn # (Auto) 0.6 (0.0-0.8) x10^3/uL Eos # (Auto) 0.2 (0.0-0.5) x10^3/uL Baso # (Auto) 0.0 (0.0-0.2) x10^3/uL Immature Gran # (Auto) 0.01 (0.00-0.07) x10^3/uL Meds: Medications Discontinued Medications Generic Name Dose Route Start Last Admin Trade Name Freq PRN Reason Stop Dose Admin Al Hydroxide/Mg Hydroxide 30 ml 10/05/21 05:09 10/05/21 05:15 Gi Cocktail Oral Solution 30 Ml PO 10/05/21 05:10 30 ml ONETIME ONE Administration Departure - Departure Time of Disposition: 05:55 Disposition: Home, Self-Care 01 Condition: Good Clinical Impression: Indigestion, Coronary artery disease - Discharge Information Instructions: Indigestion, [id number] Referrals: PCP,None [Primary Care Provider] - Forms: ED Department Discharge Additional Instructions: Follow-up with your primary care provider in the next 24 hours I recommend taking some [id number] Nexium 40 mg a day for the next 5 days I would eat bland foods daily for the next 5 days Return here to the emergency room if anything changes or gets worse Sepsis Event Note (ED) - Focused Exam Vital Signs: Vital Signs Temp Pulse Resp BP Pulse Ox 10/05/21 04:45 36.2 C 102 H 17 137/95 H 97 - Problem List & Annotations (1) Coronary artery disease SNOMED Code(s): 37242355 Code(s): I25.10 - ATHSCL HEART DISEASE OF [place] CORONARY ARTERY W/O ANG PCTRS Status: Acute Current Visit: Yes (2) Indigestion SNOMED Code(s): 393928353 Code(s): K30 - FUNCTIONAL DYSPEPSIA Status: Acute Current Visit: Yes - My Orders Last 24 Hours: My Active Orders 10/05/21 04:53 TROPONIN I HIGH SENSITIVITY [CHEM] Stat 10/05/21 04:59 COMPREHENSIVE METABOLIC PN,CMP [CHEM] Stat - Assessment/Plan Last 24 Hours: My Active Orders 10/05/21 04:53 TROPONIN I HIGH SENSITIVITY [CHEM] Stat 10/05/21 04:59 COMPREHENSIVE METABOLIC PN,CMP [CHEM] Stat
[2021-10-05] MEDS ORDERED: GI Cocktail Oral Solution 30 ML PO ONE (05:09)
[2021-10-05 05:43] LABS: ANION GAP 13.6 mmol/L (5-15)
[2021-10-05 08:26] VITALS: BP 105/62; PULSE 72
== END 2021-10-05 08:20 | disposition home or self-care (01) ==
LOC: VM.ED 04:45
DX: K30 Functional dyspepsia (principal); I25.10 Atherosclerotic heart disease of native coronary artery without angina pectoris; I10 Essential (primary) hypertension; I25.2 Old myocardial infarction; M10.9 Gout, unspecified; Z95.810 Presence of automatic (implantable) cardiac defibrillator; Z88.5 Allergy status to narcotic agent; Z91.030 Bee allergy status; Z79.82 Long term (current) use of aspirin; Z79.899 Other long term (current) drug therapy; Z95.0 Presence of cardiac pacemaker
CPT/HCPCS: 36415; 80053; 84484; 85025; 93005; 93010; 99284; 99284-25; A9270-GY

== ENCOUNTER 2021-10-07 11:55 | Observation (INO) | payer MEDICARE, MEDICAID ==
[2021-10-07] MEDS ORDERED: Sodium Chloride 0.9% 10 ML Syringe IV PRN (12:29)
[2021-10-07] MEDS ORDERED: Sodium Chloride 0.9% 1,000 ML IV SCH (12:30)
[2021-10-07] MEDS ORDERED: Nitroglycerin 0.4 MG Tab.SL SL PRN (12:54)
[2021-10-07] MEDS ORDERED: Albuterol HFA 18 Gm Inhaler INH PRN ×2 (12:54)
[2021-10-07 13:06] LABS: CHLORIDE,CL 99 mmol/L (98-107); SODIUM,NA 140 mmol/L (136-145)
[2021-10-07] MEDS ORDERED: EPINEPHrine 1 MG/1 ML Amp PRN (13:15)
[2021-10-07 13:25] LABS: CORONAVIRUS COVID-19 NAA NEGATIVE (NEGATIVE)
[2021-10-07] MEDS: Albuterol 0.083% 2.5 MG/3 ML Neb Soln NEB PRN (14:08)
[2021-10-07] MEDS: Codeine/guaiFENesin 10-100 MG/5 ML Syrup 5 ML Cup PO PRN ×3 (14:08→21:19)
[2021-10-07] MEDS: Acetaminophen 325 MG Tab PO PRN ×3 (14:08→21:18)
[2021-10-07] MEDS: Ketorolac 15 MG/ML SDV IVPUSH PRN (14:08)
[2021-10-07] MEDS: Ondansetron 4 MG/2 ML SDV IVPUSH PRN (14:10)
[2021-10-07] MEDS: Oseltamivir 75 MG Cap PO SCH ×2 (14:40→21:10)
--- NOTE | 2021-10-07 19:44 | HP ---
Admission history and physical to the Observation Unit at [facility]. CHIEF COMPLAINT: 1. Shortness of breath. 2. Fevers and chills. 3. Dehydration. 4. Dry cough. HISTORY OF PRESENT ILLNESS: A 51-year-old male patient, was seen by me in the clinic earlier today for the above complaints. The patient was found to have a fever of 103.1 orally. The patient appeared very dehydrated and had a nonproductive dry cough. The patient has multiple comorbid problems including ischemic cardiomyopathy, essential hypertension, heart failure, pulmonary hypertension, recent history of an NSTEMI. The patient states his symptoms started last evening. He is not sure about any exposures. He has an intermittent headache. No dizziness or lightheadedness. The patient denies any chest pain or palpitations. No leg swelling. No abdominal complaints. No skin concerns. The patient complains of feeling very short of breath. Complains of a dry nonproductive cough. Complains of intermittent sweating. PAST MEDICAL HISTORY: 1. Ischemic cardiomyopathy. 2. Essential hypertension. 3. Chronic combined systolic and diastolic heart failure. 4. Pulmonary hypertension. 5. Ascending aortic enlargement. 6. Ventricular tachycardia. 7. Coronary artery disease. 8. Mixed hyperlipidemia. 9. Moderate mitral regurgitation. 10.Obstructive sleep apnea. 11.Major depressive disorder. 12.History of drug-eluting coronary stent. 13.NSTEMI. 14.Prediabetes. 15.ICD. PAST SURGICAL HISTORY: 1. Coronary stent placement. 2. ICD placement. FAMILY HISTORY: Noncontributory. SOCIAL HISTORY: The patient quit smoking 03/02/2016. The patient does not vape. The patient does not use any alcohol. No illegal drug use. The patient is , with 1 child. LABORATORY STUDIES: Pending. IMAGING STUDIES: Chest x-ray does not reveal any heart failure or pneumonia. MEDICATIONS: 1. Atorvastatin 80 mg 1 tablet p.o. daily. 2. Bumex 1 mg 1 tablet p.o. daily. 3. Carvedilol 6.25 mg 1 tablet p.o. twice daily. 4. Farxiga 10 mg 1 tablet p.o. daily. 5. Effient 10 mg 1 tablet p.o. daily. 6. Spironolactone 12.5 mg p.o. daily. 7. Albuterol HFA 1 to 2 puffs every 4 hours as needed. 8. Nitroglycerin 0.5 mg as directed. 9. Aspirin 81 mg 1 tablet p.o. daily. 10.Albuterol 2.5 mg/3 mL via nebulizer every 4 hours as needed. ALLERGIES: 1. Fentanyl. 2. Bee venom. 3. Morphine. CODE STATUS: Code 1. REVIEW OF SYSTEMS: See HPI. PHYSICAL EXAMINATION: Vital Signs: Blood pressure 100/58, temperature 103.1, pulse 90, respirations 16, oxygen saturation 90% on room air. Height 5 feet 10 inches, weight 300 pounds. Skin: Intact, warm, and dry. Respiratory: Lungs are decreased, but clear throughout. HEENT: Posterior oropharynx is erythematous, but no exudate. Bilateral TMs are clear. No nasal congestion. No sinus pressure/pain. Cardiovascular: Regular rate and rhythm, no murmur. Abdomen: Obese, soft, bowel sounds are hypoactive x4. Extremities: No edema. Neurological: The patient is alert. The patient is oriented to person, place, and time. ASSESSMENT: 1. Fevers and chills. 2. Clinical dehydration. 3. Shortness of breath. 4. Nausea. 5. Influenza A PLAN: A 51-year-old male patient is admitted to the observation unit at [facility] for the above diagnoses. The patient will be gently rehydrated, keeping in mind his CHF. The patient does have an EF of less than 10%. The patient will be given Tylenol for fever, Cheratussin for cough. We will check laboratory work and rule out COVID and influenza. The patient is a code 1. The patient does not wish to transfer to a higher level of care should the need arise. I expect the patient to be admitted only for a few hours, possibly overnight. TB: 10/07/2021 12:48:03 MODL: 10/07/2021 19:34:57 /[id number] MTDD
[2021-10-07] MEDS ORDERED: atorvaSTATin 10 MG Tab PO SCH (20:00)
[2021-10-07] MEDS ORDERED: Carvedilol 12.5 MG Tab PO SCH (20:00)
[2021-10-08] MEDS: Ondansetron 4 MG/2 ML SDV IVPUSH PRN (00:46)
[2021-10-08] MEDS: Ketorolac 15 MG/ML SDV IVPUSH PRN (00:47)
[2021-10-08] MEDS: Acetaminophen 325 MG Tab PO PRN ×3 (01:04→19:53)
[2021-10-08] MEDS: Codeine/guaiFENesin 10-100 MG/5 ML Syrup 5 ML Cup PO PRN (01:04)
[2021-10-08] MEDS ORDERED: Ondansetron 4 MG Tab.DIS PO PRN (07:06)
[2021-10-08 07:16] LABS: ANION GAP 9.9 mmol/L (5-15)
[2021-10-08] MEDS ORDERED: Aspirin 81 MG Tab.Chew PO SCH (08:00)
[2021-10-08] MEDS ORDERED: PRASUGREL HCL 10 MG PO SCH (08:00)
[2021-10-08] MEDS ORDERED: Bumetanide 1 MG Tab PO SCH (08:00)
[2021-10-08] MEDS ORDERED: Spironolactone 25 MG Tab PO SCH (08:00)
[2021-10-08] MEDS ORDERED: DAPAGLIFLOZIN 10 MG PO SCH (08:00)
[2021-10-08] MEDS: Oseltamivir 75 MG Cap PO SCH ×2 (08:28→19:55)
[2021-10-08] MEDS: Carvedilol 6.25 MG Tab PO SCH ×2 (08:28→19:54)
[2021-10-08] MEDS ORDERED: EPINEPHrine 1 MG/1 ML Amp IM PRN (11:49)
[2021-10-08] MEDS: Albuterol 0.083% 2.5 MG/3 ML Neb Soln NEB PRN (13:36)
[2021-10-08] MEDS ORDERED: methylPREDNISolone Sodium Succinate 40 MG/1 ML SDV IVPUSH ONE (14:48)
--- NOTE | 2021-10-08 14:49 | PCM.SN.2 ---
- Free Text/Narrative Note: Notified by nursing staff, patient continues to have sats in the upper 70's off oxygen. Patient assessed. Will recheck CBC, BNP, ABG, and chest xray. Will give one dose of IV Solumedrol. Continue to monitor.
[2021-10-08] MEDS ORDERED: Sodium Chloride 0.9% 10 ML Syringe IV PRN (14:56)
[2021-10-08 15:15] LABS: PCO2 ARTERIAL,POC 75 mmHg (35-48)
--- NOTE | 2021-10-08 15:56 | CR ---
[id number] RAD/RAD Chest PA or AP 1V EXAM: RAD Chest PA or AP 1V INDICATION: SHORT OF BREATH,HYPOXIA,INFLUENZA A. COMPARISON: February 28, 2021. DISCUSSION/IMPRESSION: Cardiomediastinal silhouette is unchanged in size and contour compared to the prior examination. Lungs are clear. No pleural effusion or pneumothorax. Raciel Dunham MD 10/08/21 [id number] Thank you for allowing us to participate in the care of your patient.
[2021-10-08] MEDS: Albuterol/Ipratropium 3.0-0.5 MG/3 ML Neb Soln NEB SCH ×3 (16:27→22:30)
[2021-10-08] MEDS ORDERED: Albuterol/Ipratropium 3.0-0.5 MG/3 ML Neb Soln NEB PRN (16:37)
--- NOTE | 2021-10-08 16:40 | PCM.SN.2 ---
- Free Text/Narrative Note: In to see patient again. Labs reviewed. Will start patient on BiPAP 09/26. Start Duonebs q4h scheduled and q2h PRN. One dose of Solumedrol today and one tomorrow morning. Recheck ABG in AM with other labs. Patient is stable. Lungs wheezy throughout, no crackles. CXR unremarkable. Patient and nursing staff updated on POC. Continue to monitor.
[2021-10-08] MEDS ORDERED: atorvaSTATin 40 MG Tab PO SCH (20:00)
[2021-10-08 22:34] VITALS: BP 123/71; PULSE 81
--- NOTE | 2021-10-09 00:02 | PN ---
Progress Note for ERIKA CAMPBELL Date: 10/08/2021 Room #: VM.216 CHIEF COMPLAINT: 1. Shortness of breath. 2. Fatigue. 3. Dehydration. 4. Dry cough. SUBJECTIVE: Hospital day #2 on a 51-year-old male patient, who was admitted to the observation unit yesterday at [facility] for influenza A, dehydration, fevers. The patient had low-grade fevers overnight of 100.1. He did get Tylenol. The patient also had some nausea for which he got Zofran. The patient has been taking p.o. fluids well. The patient was started on Tamiflu yesterday. The patient denies any headaches, dizziness, or lightheadedness. He states his cough is essentially gone. He still feels somewhat short of breath at times. The patient denies any chest pain or palpitations. No leg swelling. No abdominal complaints. No skin concerns. He states he does have intermittent sweating. He has some chills. PHYSICAL EXAMINATION: Vital Signs: Weight 300 pounds, temperature 97.5, pulse 64, blood pressure 86/49, respiratory rate 16, oxygen saturation 95% on 3 L. Skin: Intact, warm, and dry. Respiratory: Lungs are decreased, but clear throughout. Cardiovascular: Regular rate and rhythm, no murmur. Abdomen: Obese. Soft. Bowel sounds are hypoactive x4. Extremities: No edema. Neurological: The patient is alert. The patient is oriented to person, place, and time. No new focal neurological deficits. LABORATORY STUDIES: Pending at the time of this dictation. ASSESSMENT: 1. Influenza A. 2. Fevers and chills. 3. Clinical dehydration. 4. Shortness of breath. 5. Nausea. 6. Hypoxia secondary to Influenza A PLAN: Hospital day #2 on a 51-year-old male patient, who was admitted to the observation unit at [facility] for the above diagnoses. We will discontinue IV fluids as the patient is taking p.o. well. Continue with Tamiflu. Continue to wean oxygen to keep saturations greater than 90%. Continue all other medications the same. If the patient can maintain saturations above 90% on room air, may consider discharge later today. Await laboratory results from today. This patient was seen and examined by me as an [facility] provider. Total time for care and coordination, greater than 30 minutes. TB: 10/08/2021 07:03:24 MODL: 10/08/2021 23:54:25 /[id number] MTDD
[2021-10-09] MEDS: Albuterol/Ipratropium 3.0-0.5 MG/3 ML Neb Soln NEB SCH (03:06)
[2021-10-09] MEDS ORDERED: methylPREDNISolone Sodium Succinate 40 MG/1 ML SDV IVPUSH ONE (08:00)
--- NOTE | 2021-10-09 11:57 | PCM.DCSUM1 ---
Discharge Summary - Hospital Course HPI Initial Comments: 51 yo male patient was seen at the [facility] for SOB, fevers, dry cough. Symptoms started the evening prior. The patient was admitted to the observation unit at [facility] for hydration, control of fevers, SOB. Patient's fevers resolved, however, his pCO2 was significantly elevated at 75, therefore oxygen was started. This did not seem to help, so decided to try BiPAP which patient refused. Then tried high flow was tried and patient refused this as well. Labs remained otherwise stable. Patient was not stable for discharge which was discussed at length. Diagnosis: Stroke: No Modified [place] Scale: No Symptoms at All Modified [place] Scale Score: 0 - Discharge Data Discharge Date: 10/09/21 (Patient not seen or examined. Patient left facility prior to provider arrival) Discharge Disposition: Against Medical Advice 07 Condition: Poor - Referral to Home Health Primary Care Physician: Danie Reid NP - Discharge Diagnosis/Problem(s) (1) Acute respiratory failure with hypoxia SNOMED Code(s): 84044024, 520524144 ICD Code: J96.01 - ACUTE RESPIRATORY FAILURE WITH HYPOXIA Status: Acute Priority: High (2) Influenza A SNOMED Code(s): 238539745 ICD Code: J10.1 - FLU DUE TO OTH IDENT INFLUENZA VIRUS W OTH RESP MANIFEST Status: Acute Priority: High (3) Dehydration SNOMED Code(s): 41165141 ICD Code: E86.0 - DEHYDRATION Status: Acute Priority: High (4) SOB (shortness of breath) SNOMED Code(s): 849116898 ICD Code: R06.02 - SHORTNESS OF BREATH Status: Acute Priority: High (5) Fatigue SNOMED Code(s): 46503239 ICD Code: R53.83 - OTHER FATIGUE Status: Acute Priority: Medium Qualifiers: Fatigue type: unspecified Qualified Code(s): R53.83 - Other fatigue (6) Dry cough SNOMED Code(s): 27235646 ICD Code: R05.8 - OTHER SPECIFIED COUGH Status: Acute Priority: Medium - Patient Summary/Data Operative Procedure(s) Performed: None Consults: Respiratory Therapist Labs Pending at D/C: CBC, CMP. Arterial Blood Gas Recommended Follow-up Testing/Procedures: Labs, CXR Planned Operative Procedure(s) after DC: None Hospital Course: Patient admitted for Acute Respiratory Failure with hypoxia secondary to Influenza A, dehydration, dry cough, SOB, and fatigue. Patient required oxygen for hypercapnia. Blood gases showed a pCO2 of 75. Attempted BiPAP but patient refused. Attempted HFNC, which patient tried but then refused. Patient was febrile on admission. Tamiflu started on admission. This provider visited with patient regarding plan of care and patient agreed. However, patient became agitated during the night and refused any treatments. 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 See nursing documentation. - Patient Instructions Diet: Low Sodium, Fluid Restriction Fluid Restriction: 1500 mL Activity: As Tolerated Driving: Do Not Drive Showering/Bathing: May Shower Notify Provider of: Fever, Nausea and/or Vomiting - Discharge Plan *PRESCRIPTION DRUG MONITORING PROGRAM REVIEWED*: Not Applicable *COPY OF PRESCRIPTION DRUG MONITORING REPORT IN PATIENT JEANNETTE: Not Applicable Home Medications: Home Meds EPINEPHrine [Epipen] 0.3 mg .XX ASDIRECTED #1 pen 08/10/15 [Rx] Aspirin 81 mg PO DAILY 05/03/16 [History] Spironolactone 12.5 mg PO DAILY 05/03/16 [History] atorvaSTATin Calcium [Atorvastatin Calcium] 80 mg PO BEDTIME 05/03/16 [History] carvediloL [Carvedilol] 6.25 mg PO BID 05/03/16 [History] Albuterol [Ventolin HFA] 2 puff INH Q4H PRN 09/11/21 [History] Prasugrel HCl [Effient] 10 mg PO DAILY 09/11/21 [History] Albuterol Sulfate 2.5 mg IH Q4HR PRN 10/07/21 [History] Bumetanide [Bumex] 1 tab PO DAILY 10/07/21 [History] Dapagliflozin Propanediol [Farxiga] 10 mg PO DAILY 10/07/21 [History] Nitroglycerin [Nitrostat] 0.4 mg SL ASDIRECTED PRN 10/07/21 [History] Oxygen Therapy Mode: High Humidity, High Flow Therapy (Patient refused during his stay, discharged on room air) Maintain SpO2% greater than: 90 - Discharge Summary/Plan Comment DC Time >30 min.: Yes Total # of Minutes for Discharge Time: 34 Discharge Summary/Plan Comment: Patient consented per AMA form. Patient verbalized understanding of AMA for and the risk he is taking by leaving against medical advice. Patient signed form with full understanding of his current health status. - General Info Date of Service: 10/09/21 Subjective Update: Patient not seen or examined prior to discharge. Patient left facility prior to provider arrival - Patient Data Vitals - Most Recent: Last Vital Signs Temp 98 F 10/08/21 22:00 Pulse 81 10/08/21 22:00 Resp 20 10/09/21 03:07 BP 123/71 10/08/21 22:00 Pulse Ox 94 L 10/09/21 03:07 Weight - Most Recent: 300 lb Lab Results - Last 24 hrs: Laboratory Results - last 24 hr 10/07/21 10/08/21 10/08/21 Range/Units 12:38 15:00 15:00 WBC 7.3 (4.0-10.0) x10^3/uL RBC 4.73 (4.5-6.0) x10^6/uL Hgb 13.2 L (14.0-18.0) g/dL Hct 41.2 (40.0-52.0) % MCV 87.1 (78.0-93.0) fL MCH 27.9 (26.0-32.0) pg MCHC 32.0 (32.0-36.0) g/dL RDW Coeff of Demar 14.1 (10.0-15.0) % Plt Count 171 (130-400) x10^3/uL Immature Gran % (Auto) 0.10 (0.00-0.43) % Neut % (Auto) 81.2 H (50.0-80.0) % Lymph % (Auto) 5.9 L (25.0-50.0) % Upson % (Auto) 12.1 H (2.0-11.0) % Eos % (Auto) 0.4 (0.0-4.0) % Baso % (Auto) 0.3 (0.2-1.2) % Neut # (Auto) 5.9 (1.8-7.7) x10^3/uL Lymph # (Auto) 0.4 L (1.0-4.8) x10^3/uL Upson # (Auto) 0.9 H (0.0-0.8) x10^3/uL Eos # (Auto) 0.0 (0.0-0.5) x10^3/uL Baso # (Auto) 0.0 (0.0-0.2) x10^3/uL Immature Gran # (Auto) 0.01 (0.00-0.07) x10^3/uL POC ABG pH (7.35-7.45) pH POC ABG pCO2 (35-48) mmHg POC ABG pO2 (83-108) mmHg POC ABG HCO3 (21-28) mmol/L POC ABG Total CO2 (22-29) mmol/L POC ABG O2 Sat (94-98) % POC ABG Base Excess ((-2)-3) mmol/L POC FiO2 POC Blood Gas Comment NT-Pro-B Natriuret Pep 438 H (<=125) pg/mL Influenza Type A RNA Positive H (NEGATIVE) 10/08/21 Range/Units 15:11 WBC (4.0-10.0) x10^3/uL RBC (4.5-6.0) x10^6/uL Hgb (14.0-18.0) g/dL Hct (40.0-52.0) % MCV (78.0-93.0) fL MCH (26.0-32.0) pg MCHC (32.0-36.0) g/dL RDW Coeff of Demar (10.0-15.0) % Plt Count (130-400) x10^3/uL Immature Gran % (Auto) (0.00-0.43) % Neut % (Auto) (50.0-80.0) % Lymph % (Auto) (25.0-50.0) % Upson % (Auto) (2.0-11.0) % Eos % (Auto) (0.0-4.0) % Baso % (Auto) (0.2-1.2) % Neut # (Auto) (1.8-7.7) x10^3/uL Lymph # (Auto) (1.0-4.8) x10^3/uL Upson # (Auto) (0.0-0.8) x10^3/uL Eos # (Auto) (0.0-0.5) x10^3/uL Baso # (Auto) (0.0-0.2) x10^3/uL Immature Gran # (Auto) (0.00-0.07) x10^3/uL POC ABG pH 7.29 L* (7.35-7.45) pH POC ABG pCO2 75 H* (35-48) mmHg POC ABG pO2 65 L (83-108) mmHg POC ABG HCO3 35.7 H (21-28) mmol/L POC ABG Total CO2 36.5 H (22-29) mmol/L POC ABG O2 Sat 88.6 L (94-98) % POC ABG Base Excess 9 H ((-2)-3) mmol/L POC FiO2 28 POC Blood Gas Comment Called critical res NT-Pro-B Natriuret Pep (<=125) pg/mL Influenza Type A RNA (NEGATIVE) Med Orders - Current: Current Medications Discontinued Medications Acetaminophen (Acetaminophen 325 Mg Tab) 650 mg PO Q4H PRN PRN Reason: Fever Last Admin: 10/08/21 19:53 Dose: 650 mg Documented by: Albuterol (Albuterol Hfa 18 Gm Inhaler) 0 gm INH Q4H PRN PRN Reason: Wheezing Albuterol (Albuterol 0.083% 2.5 Mg/3 Ml Neb Soln) 2.5 mg NEB Q4H PRN PRN Reason: Shortness of Breath Last Admin: 10/08/21 13:36 Dose: 2.5 mg Documented by: Albuterol/Ipratropium (Albuterol/Ipratropium 3.0-0.5 Mg/3 Ml Neb Soln) 3 ml NEB Q4HRRT [facility] Last Admin: 10/09/21 03:06 Dose: Not Given Documented by: Albuterol/Ipratropium (Albuterol/Ipratropium 3.0-0.5 Mg/3 Ml Neb Soln) 3 ml NEB Q2H PRN PRN Reason: Shortness of Breath Aspirin (Aspirin 81 Mg Tab.Chew) 81 mg PO DAILY [facility] Last Admin: 10/08/21 08:27 Dose: 81 mg Documented by: Atorvastatin Calcium (Atorvastatin 10 Mg Tab) 20 mg PO BEDTIME [facility] Last Admin: 10/07/21 21:10 Dose: 20 mg Documented by: Atorvastatin Calcium (Atorvastatin 40 Mg Tab) 80 mg PO BEDTIME [facility] Last Admin: 10/08/21 19:54 Dose: 80 mg Documented by: Bumetanide (Bumetanide 1 Mg Tab) 1 mg PO DAILY [facility] Last Admin: 10/08/21 08:27 Dose: 1 mg Documented by: Carvedilol (Carvedilol 12.5 Mg Tab) 12.5 mg PO BID [facility] Last Admin: 10/07/21 21:11 Dose: 12.5 mg Documented by: Carvedilol (Carvedilol 6.25 Mg Tab) 6.25 mg PO BID [facility] Last Admin: 10/08/21 19:54 Dose: 6.25 mg Documented by: Epinephrine HCl (Epinephrine 1 Mg/1 Ml Amp) 0.3 mg .XX ASDIRECTED PRN PRN Reason: ANAPHYLAXIS Epinephrine HCl (Epinephrine 1 Mg/1 Ml Amp) 0.3 mg IM ASDIRECTED PRN PRN Reason: ANAPHYLAXIS Guaifenesin/Codeine Phosphate (Codeine/Guaifenesin 10-100 Mg/5 Ml Syrup 5 Ml Cup) 5 ml PO Q4H PRN PRN Reason: Cough Last Admin: 10/08/21 01:04 Dose: 5 ml Documented by: Sodium Chloride (Normal Saline) 1,000 mls @ 50 mls/hr IV ASDIRECTED [facility] Last Admin: 10/07/21 14:24 Dose: 50 mls/hr Documented by: Ketorolac Tromethamine (Ketorolac 15 Mg/Ml Sdv) 30 mg IVPUSH Q8H PRN PRN Reason: Pain Stop: 10/12/21 13:09 Last Admin: 10/08/21 00:47 Dose: 30 mg Documented by: Methylprednisolone Sodium Succinate (Methylprednisolone Sodium Succinate 40 Mg/1 Ml Sdv) 40 mg IVPUSH ONETIME ONE Stop: 10/08/21 14:49 Last Admin: 10/08/21 16:17 Dose: 40 mg Documented by: Methylprednisolone Sodium Succinate (Methylprednisolone Sodium Succinate 40 Mg/1 Ml Sdv) 40 mg IVPUSH ONETIME ONE Stop: 10/09/21 08:01 Nitroglycerin (Nitroglycerin 0.4 Mg Tab.Sl) 0.4 mg SL ASDIRECTED PRN PRN Reason: Chest Pain Dapagliflozin [ Farxiga] 10 Mg Tablet 0 mg PO DAILY [facility] Last Admin: 10/08/21 09:37 Dose: Not Given Documented by: Prasugrel Hcl [ Effient] 10 Mg Tablet (Own Supply) 0 mg PO DAILY [facility] Last Admin: 10/08/21 09:37 Dose: Not Given Documented by: Ondansetron HCl (Ondansetron 4 Mg/2 Ml Sdv) 4 mg IVPUSH Q8H PRN PRN Reason: Nausea Last Admin: 10/08/21 00:46 Dose: 4 mg Documented by: Ondansetron HCl (Ondansetron 4 Mg Tab.Dis) 4 mg PO Q4H PRN PRN Reason: Nausea/Vomiting Oseltamivir Phosphate (Oseltamivir 75 Mg Cap) 75 mg PO BID [facility] Stop: 10/11/21 20:01 Last Admin: 10/08/21 19:55 Dose: 75 mg Documented by: Sodium Chloride (Sodium Chloride 0.9% 10 Ml Syringe) 10 ml IV ASDIRECTED PRN PRN Reason: Keep Vein Open Sodium Chloride (Sodium Chloride 0.9% 10 Ml Syringe) 10 ml IV ASDIRECTED PRN PRN Reason: Keep Vein Open Spironolactone (Spironolactone 25 Mg Tab) 12.5 mg PO DAILY [facility] Last Admin: 10/08/21 08:26 Dose: 12.5 mg Documented by: - Exam Physical Findings Comments:: Patient not seen or examined. Patient left facility prior to provider arrival *Q Meaningful Use (DIS) - VTE *Q VTE Mechanical Contraindications *Q: At Risk for Falls
== END 2021-10-09 05:00 | disposition left against medical advice (07) ==
LOC: VM.MS 13:32
PROVIDERS: ADMIT Nurse Practitioner Family; ATTEND Nurse Practitioner Family
DX: J96.01 Acute respiratory failure with hypoxia (principal); J10.1 Influenza due to other identified influenza virus with other respiratory manifestations; E86.0 Dehydration; R05.9 Cough, unspecified; I25.5 Ischemic cardiomyopathy; I27.20 Pulmonary hypertension, unspecified; I25.2 Old myocardial infarction; I50.42 Chronic combined systolic (congestive) and diastolic (congestive) heart failure; I11.0 Hypertensive heart disease with heart failure; G47.33 Obstructive sleep apnea (adult) (pediatric); R73.03 Prediabetes; I25.10 Atherosclerotic heart disease of native coronary artery without angina pectoris; I34.0 Nonrheumatic mitral (valve) insufficiency; Z87.891 Personal history of nicotine dependence; Z79.82 Long term (current) use of aspirin; Z79.899 Other long term (current) drug therapy; Z88.8 Allergy status to other drugs, medicaments and biological substances; Z88.5 Allergy status to narcotic agent; Z91.030 Bee allergy status; Z20.822 Contact with and (suspected) exposure to COVID-19
CPT/HCPCS: 0240U; 36415; 36600; 71045; 80053; 82803; 83605; 83880; 84145; 85025; 86140; 94640; 96374; 96375; 96376; A9270-GY; G0378; G0379; J1885; J2405; J2920; J7030; J7613-GY; J7620-GY

== ENCOUNTER 2021-11-02 20:56 | Emergency (ER) | payer MEDICARE, MEDICAID ==
[2021-11-02] MEDS ORDERED: HYDROmorphone 1 MG/ML Syringe IVPUSH ONE (21:04)
[2021-11-02 22:22] VITALS: BP 150/99; PULSE 94
[2021-11-02] MEDS ORDERED: Take Home: Acetaminophen/oxyCODONE 325-5 MG, 5 Tab Pack PO ONE (22:30)
== END 2021-11-02 23:05 | disposition home or self-care (01) ==
LOC: VM.ED 20:56
DX: S82.831A Other fracture of upper and lower end of right fibula, initial encounter for closed fracture (principal); S82.391A Other fracture of lower end of right tibia, initial encounter for closed fracture; S16.1XXA Strain of muscle, fascia and tendon at neck level, initial encounter; I11.9 Hypertensive heart disease without heart failure; I25.2 Old myocardial infarction; I25.10 Atherosclerotic heart disease of native coronary artery without angina pectoris; M10.9 Gout, unspecified; Z95.0 Presence of cardiac pacemaker; Z91.030 Bee allergy status; Z79.82 Long term (current) use of aspirin; Z79.899 Other long term (current) drug therapy; W00.0XXA Fall on same level due to ice and snow, initial encounter
CPT/HCPCS: 29515; 72125; 73590-RT; 73610-RT; 96374; 99284-25; A9270-GY; J1170

== ENCOUNTER 2021-11-17 01:35 | Emergency (ER) | payer MEDICARE, MEDICAID ==
[2021-11-17 02:47] VITALS: PULSE 100
[2021-11-17] MEDS ORDERED: Furosemide 40 MG/4 ML VIAL IV ONE (02:49)
[2021-11-17] MEDS ORDERED: Sodium Chloride 0.9% 10 ML Syringe FLUSH PRN (02:49)
[2021-11-17 03:00] LABS: ANION GAP 11.1 mmol/L (5-15)
[2021-11-17 05:29] VITALS: BP 127/81
[2021-11-17] MEDS ORDERED: Iopamidol 755 Mg/ML 100 ML Bottle IVPUSH ONE (06:55)
== END 2021-11-17 05:10 | disposition home or self-care (01) ==
LOC: VM.ED 01:35
DX: T82.897A Other specified complication of cardiac prosthetic devices, implants and grafts, initial encounter (principal); S82.831A Other fracture of upper and lower end of right fibula, initial encounter for closed fracture; I49.01 Ventricular fibrillation; I11.0 Hypertensive heart disease with heart failure; I50.9 Heart failure, unspecified; R79.89 Other specified abnormal findings of blood chemistry; E78.00 Pure hypercholesterolemia, unspecified; I25.10 Atherosclerotic heart disease of native coronary artery without angina pectoris; I25.2 Old myocardial infarction; M10.9 Gout, unspecified; Z88.5 Allergy status to narcotic agent; Z91.030 Bee allergy status; Z79.82 Long term (current) use of aspirin; Z79.899 Other long term (current) drug therapy; W18.30XA Fall on same level, unspecified, initial encounter
CPT/HCPCS: 36415; 71275; 73590-RT; 80053; 83735; 83880; 84443; 84484; 85025; 85379; 93005; 96374; 99284-25; 99285; J1940; Q9967

== ENCOUNTER 2022-03-30 16:12 | Emergency (ER) | payer MEDICARE, MEDICAID ==
[2022-03-30] MEDS ORDERED: Sodium Chloride 0.9% 1,000 ML IV SCH (17:05)
[2022-03-30 17:15] LABS: CHLORIDE,CL 101 mmol/L (98-107); ESTIMATED GFR 49; SODIUM,NA 141 mmol/L (136-145)
[2022-03-30] MEDS ORDERED: HYDROmorphone 0.5 MG/0.5 ML Syringe IVPUSH ONE (17:21)
[2022-03-30 17:30] VITALS: PULSE 130
[2022-03-30 19:02] VITALS: BP 105/71
== END 2022-03-30 18:15 | disposition short-term general hospital (02) ==
LOC: VM.ED 16:12
DX: T82.897A Other specified complication of cardiac prosthetic devices, implants and grafts, initial encounter (principal); I48.92 Unspecified atrial flutter; I11.0 Hypertensive heart disease with heart failure; I50.9 Heart failure, unspecified; R74.8 Abnormal levels of other serum enzymes; I25.10 Atherosclerotic heart disease of native coronary artery without angina pectoris; I10 Essential (primary) hypertension; I25.2 Old myocardial infarction; Z90.49 Acquired absence of other specified parts of digestive tract; Z72.0 Tobacco use; Z88.5 Allergy status to narcotic agent; Z91.030 Bee allergy status; Z88.6 Allergy status to analgesic agent; Z79.899 Other long term (current) drug therapy; Z79.82 Long term (current) use of aspirin
CPT/HCPCS: 71046; 80053; 82550; 83615; 83880; 84484; 85025; 86140; 99285; J7030

== ENCOUNTER 2022-05-13 08:14 | Emergency (ER) | payer MEDICARE, MEDICAID ==
[2022-05-13] MEDS ORDERED: Sodium Chloride 0.9% 10 ML Syringe FLUSH PRN (08:24)
[2022-05-13 09:12] LABS: CHLORIDE,CL 100 mmol/L (98-107); SODIUM,NA 139 mmol/L (136-145)
[2022-05-13 09:13] LABS: ANION GAP 10.1 mmol/L (5-15); ESTIMATED GFR 51 mL/min (>=60)
[2022-05-13 09:34] VITALS: PULSE 75
[2022-05-13 09:47] VITALS: BP 124/76
== END 2022-05-13 10:28 | disposition short-term general hospital (02) ==
LOC: VM.ED 08:14
DX: T82.897A Other specified complication of cardiac prosthetic devices, implants and grafts, initial encounter (principal); R07.89 Other chest pain; I25.10 Atherosclerotic heart disease of native coronary artery without angina pectoris; I11.0 Hypertensive heart disease with heart failure; I50.9 Heart failure, unspecified; I25.2 Old myocardial infarction; Z88.5 Allergy status to narcotic agent; Z88.6 Allergy status to analgesic agent; Z91.030 Bee allergy status; Z79.899 Other long term (current) drug therapy; Z79.82 Long term (current) use of aspirin
CPT/HCPCS: 36415; 71045; 80053; 82550; 83880; 84484; 85025; 85610; 93005; 93010; 99284; 99285

== ENCOUNTER 2022-05-25 18:48 | Emergency (ER) | payer MEDICARE, MEDICAID ==
[2022-05-25] MEDS ORDERED: Ondansetron 4 MG/2 ML SDV IVPUSH ONE (18:58)
[2022-05-25 19:30] LABS: PTT,PARTIAL THROMBOPLSTIN TIME 23.9 SEC (20.5-30.9)
[2022-05-25 19:42] LABS: ANION GAP 11.3 mmol/L (5-15); CHLORIDE,CL 102 mmol/L (98-107); ESTIMATED GFR 39 mL/min (>=60); SODIUM,NA 142 mmol/L (136-145)
[2022-05-25] MEDS ORDERED: Sodium Chloride 0.9% 10 ML Syringe FLUSH PRN (19:52)
[2022-05-25] MEDS ORDERED: Heparin Sodium 5,000 Units/ML Vial IVPUSH ONE (19:54)
[2022-05-25] MEDS ORDERED: Heparin Sodium/0.45% NaCl 25,000 UNITS/500 ML BAG IV STA (19:55)
[2022-05-25] MEDS ORDERED: Nitroglycerin/D5W 25 MG/250 ML BOTTLE IV SCH (20:00)
[2022-05-25] MEDS ORDERED: Enoxaparin 120 MG/0.8 ML Syringe SUBCUT ONE (20:02)
[2022-05-25 20:07] VITALS: BP 144/78; PULSE 79
[2022-05-25] MEDS ORDERED: Metoclopramide 10 MG/2 ML SDV IVPUSH ONE (21:05)
== END 2022-05-25 21:16 | disposition short-term general hospital (02) ==
LOC: VM.ED 18:48
DX: T82.897A Other specified complication of cardiac prosthetic devices, implants and grafts, initial encounter (principal); I21.4 Non-ST elevation (NSTEMI) myocardial infarction; I25.10 Atherosclerotic heart disease of native coronary artery without angina pectoris; I11.0 Hypertensive heart disease with heart failure; I50.9 Heart failure, unspecified; E78.00 Pure hypercholesterolemia, unspecified; I25.2 Old myocardial infarction; M10.9 Gout, unspecified; Z95.0 Presence of cardiac pacemaker; Z88.5 Allergy status to narcotic agent; Z91.030 Bee allergy status; Z79.82 Long term (current) use of aspirin; Z79.899 Other long term (current) drug therapy
CPT/HCPCS: 36415; 71045; 80053; 83735; 84100; 84443; 84484; 85025; 85610; 85730; 93005; 93010; 96365; 96372; 96375; 99284; 99285-25; J1650; J2405; J2765; J3490

== ENCOUNTER 2023-02-17 04:05 | Emergency (ER) | payer MEDICARE, MEDICAID ==
[2023-02-17 04:53] LABS: CHLORIDE,CL 101 mmol/L (98-107); SODIUM,NA 141 mmol/L (136-145)
[2023-02-17 04:55] LABS: ANION GAP 9.8 mmol/L (5-15); ESTIMATED GFR 51 mL/min (>=60)
[2023-02-17] MEDS ORDERED: Iopamidol 612 MG/ML 100 ML Bottle IVPUSH ONE (06:24)
[2023-02-17] MEDS ORDERED: methylPREDNISolone Sodium Succinate 125 MG/2 ML SDV IV ONE (08:04)
[2023-02-17] MEDS ORDERED: diphenhydrAMINE 50 MG/ML SDV IVPUSH ONE (08:12)
[2023-02-17 09:14] VITALS: BP 132/88; PULSE 88
== END 2023-02-17 08:27 | disposition home or self-care (01) ==
LOC: VM.ED 04:05
DX: T78.40XA Allergy, unspecified, initial encounter (principal); E78.00 Pure hypercholesterolemia, unspecified; I11.0 Hypertensive heart disease with heart failure; I50.9 Heart failure, unspecified; I25.2 Old myocardial infarction; Z95.0 Presence of cardiac pacemaker; Z88.5 Allergy status to narcotic agent; Z91.030 Bee allergy status; Z79.82 Long term (current) use of aspirin; Z79.899 Other long term (current) drug therapy; Z87.891 Personal history of nicotine dependence
CPT/HCPCS: 36415; 71046; 74177; 80053; 82550; 83615; 83880; 84484; 85025; 85379; 86140; 93005; 93010; 96374; 96375; 99284; 99285-25; J1200; J2930; Q9967

== ENCOUNTER 2023-03-19 01:35 | Emergency (ER) | payer MEDICARE, MEDICAID ==
[2023-03-19] MEDS ORDERED: Sodium Chloride 0.9% 10 ML Syringe FLUSH PRN (01:44)
[2023-03-19] MEDS ORDERED: Sodium Chloride 0.9% 250 ML ONE (01:57)
[2023-03-19] MEDS ORDERED: Vancomycin 1 GM SDV ONE (01:57)
[2023-03-19 02:11] LABS: BASOPHILS PERCENT AUTO 0.3 % (0.2-1.2); EOSINOPHILS ABSOLUTE AUTO 0.2 x10^3/uL (0.0-0.5); EOSINOPHILS PERCENT AUTO 2.8 % (0.0-4.0); HEMATOCRIT 48.3 % (40.0-52.0); HEMOGLOBIN 15.1 g/dL (14.0-18.0); IMMATURE GRAN ABSOLUTE AUTO 0.01 x10^3/uL (0.00-0.07); LYMPHOCYTES ABSOLUTE AUTO 1.2 x10^3/uL (1.0-4.8); MEAN CORPUSCULAR HEMOGLOBIN 27.7 pg (26.0-32.0); MEAN CORPUSCULAR HGB CONC 31.3 g/dL (32.0-36.0); MEAN CORPUSCULAR VOLUME 88.6 fL (78.0-93.0); MONOCYTES ABSOLUTE AUTO 0.8 x10^3/uL (0.0-0.8); MONOCYTES PERCENT AUTO 9.2 % (2.0-11.0); NEUTROPHILS ABSOLUTE AUTO 6.4 x10^3/uL (1.8-7.7); NEUTROPHILS PERCENT AUTO 73.6 % (50.0-80.0); PLATELET COUNT,PLT 227 x10^3/uL (130-400); RED BLOOD CELL COUNT 5.45 x10^6/uL (4.5-6.0); WHITE BLOOD CELL COUNT,WBC 8.7 x10^3/uL (4.0-10.0)
[2023-03-19 02:25] LABS: PROTHROMBIN TIME 10.8 SEC (9.5-12.2); PTT,PARTIAL THROMBOPLSTIN TIME 26.6 SEC (23.6-33.6)
[2023-03-19 02:35] LABS: A/G RATIO 0.78; ALANINE AMINOTRANSFERASE,ALT 23 U/L (16-63); ALBUMIN 3.1 g/dL (3.4-5.0); ALKALINE PHOSPHATASE 84 U/L (46-116); ANION GAP 8.7 mmol/L (5-15); ASPARTATE AMNIOTRANSFERASE,AST 13 U/L (15-37); BILIRUBIN TOTAL 0.3 mg/dL (0.2-1.0); BLOOD UREA NITROGEN,BUN 27 mg/dL (7-18); C-REACTIVE PROTEIN 5.1 mg/dL (<=0.9); CALCIUM 8.5 mg/dL (8.5-10.1); CARBON DIOXIDE,CO2 36 mmol/L (21-32); CHLORIDE,CL 100 mmol/L (98-107); CREATININE 1.6 mg/dL (0.70-1.30); ESTIMATED GFR 51 mL/min (>=60); GLUCOSE RANDOM 137 mg/dL (70-99); PHOSPHORUS 3.5 mg/dL (2.6-4.7); POTASSIUM,K 3.7 mmol/L (3.5-5.1); PRO B-TYPE NATRIUR PEPT,BNPPRO 1289 pg/mL (<=125); PROTEIN TOTAL,TP 7.1 g/dL (6.4-8.2); SODIUM,NA 141 mmol/L (136-145)
[2023-03-19 02:36] LABS: ETHANOL BLOOD MEDICAL < 3 mg/dL (0-3)
[2023-03-19 03:52] VITALS: PULSE 20
[2023-03-19 04:00] VITALS: BP 115/66
== END 2023-03-19 03:10 | disposition short-term general hospital (02) ==
LOC: VM.ED 01:35
DX: T82.199A Other mechanical complication of unspecified cardiac device, initial encounter (principal); I25.10 Atherosclerotic heart disease of native coronary artery without angina pectoris; I11.0 Hypertensive heart disease with heart failure; I50.9 Heart failure, unspecified; I25.2 Old myocardial infarction; E78.00 Pure hypercholesterolemia, unspecified; M10.9 Gout, unspecified; Z88.5 Allergy status to narcotic agent; Z91.030 Bee allergy status; Z79.82 Long term (current) use of aspirin; Z79.899 Other long term (current) drug therapy
CPT/HCPCS: 36415; 71045; 80053; 80307; 83735; 83880; 84100; 84484; 85025; 85610; 85730; 86140; 93005; 93010; 94760; 99284; 99285

== ENCOUNTER 2023-08-05 05:14 | Emergency (ER) | payer MEDICARE, MEDICAID ==
[2023-08-05 06:28] LABS: BASOPHILS PERCENT AUTO 0.3 % (0.2-1.2); EOSINOPHILS ABSOLUTE AUTO 0.2 x10^3/uL (0.0-0.5); EOSINOPHILS PERCENT AUTO 2.6 % (0.0-4.0); HEMATOCRIT 51.1 % (40.0-52.0); HEMOGLOBIN 16.4 g/dL (14.0-18.0); IMMATURE GRAN ABSOLUTE AUTO 0.02 x10^3/uL (0.00-0.07); LYMPHOCYTES ABSOLUTE AUTO 1.3 x10^3/uL (1.0-4.8); LYMPHOCYTES PERCENT AUTO 14.2 % (25.0-50.0); MEAN CORPUSCULAR HEMOGLOBIN 28.3 pg (26.0-32.0); MEAN CORPUSCULAR HGB CONC 32.1 g/dL (32.0-36.0); MEAN CORPUSCULAR VOLUME 88.3 fL (78.0-93.0); MONOCYTES ABSOLUTE AUTO 0.9 x10^3/uL (0.0-0.8); MONOCYTES PERCENT AUTO 10.1 % (2.0-11.0); NEUTROPHILS ABSOLUTE AUTO 6.7 x10^3/uL (1.8-7.7); NEUTROPHILS PERCENT AUTO 72.6 % (50.0-80.0); PLATELET COUNT,PLT 260 x10^3/uL (130-400); RED BLOOD CELL COUNT 5.79 x10^6/uL (4.5-6.0); WHITE BLOOD CELL COUNT,WBC 9.2 x10^3/uL (4.0-10.0)
[2023-08-05 06:49] LABS: A/G RATIO 0.79; ALANINE AMINOTRANSFERASE,ALT 30 U/L (16-63); ALBUMIN 3.4 g/dL (3.4-5.0); ALKALINE PHOSPHATASE 89 U/L (46-116); ASPARTATE AMNIOTRANSFERASE,AST 18 U/L (15-37); BILIRUBIN TOTAL 0.3 mg/dL (0.2-1.0); BLOOD UREA NITROGEN,BUN 21 mg/dL (7-18); CALCIUM 9.1 mg/dL (8.5-10.1); CARBON DIOXIDE,CO2 38 mmol/L (21-32); CHLORIDE,CL 100 mmol/L (98-107); CREATINE KINASE,CK 61 U/L (39-308); CREATININE 1.4 mg/dL (0.70-1.30); GLUCOSE RANDOM 113 mg/dL (70-99); POTASSIUM,K 3.9 mmol/L (3.5-5.1); PROTEIN TOTAL,TP 7.7 g/dL (6.4-8.2); SODIUM,NA 141 mmol/L (136-145)
[2023-08-05 06:51] LABS: ANION GAP 6.9 mmol/L (5-15); ESTIMATED GFR 59 mL/min (>=60)
[2023-08-05 07:45] VITALS: BP 117/54; PULSE 61
== END 2023-08-05 07:07 | disposition left against medical advice (07) ==
LOC: VM.ED 05:14
DX: T82.199A Other mechanical complication of unspecified cardiac device, initial encounter (principal); I11.0 Hypertensive heart disease with heart failure; I50.9 Heart failure, unspecified; I25.2 Old myocardial infarction; E78.00 Pure hypercholesterolemia, unspecified; M10.9 Gout, unspecified; I25.10 Atherosclerotic heart disease of native coronary artery without angina pectoris; Z88.5 Allergy status to narcotic agent; Z91.030 Bee allergy status; Z79.82 Long term (current) use of aspirin; Z79.899 Other long term (current) drug therapy; Z87.891 Personal history of nicotine dependence
CPT/HCPCS: 36415; 71046; 80053; 82550; 83735; 83880; 84484; 85025; 86140; 93005; 99285

== ENCOUNTER 2023-11-05 12:56 | Emergency (ER) | payer MEDICAID, MEDICARE ==
[2023-11-05 13:41] LABS: BASOPHILS PERCENT AUTO 0.3 % (0.2-1.2); EOSINOPHILS PERCENT AUTO 0.3 % (0.0-4.0); HEMATOCRIT 53.5 % (40.0-52.0); HEMOGLOBIN 16.2 g/dL (14.0-18.0); IMMATURE GRAN ABSOLUTE AUTO 0.03 x10^3/uL (0.00-0.07); LYMPHOCYTES ABSOLUTE AUTO 0.6 x10^3/uL (1.0-4.8); LYMPHOCYTES PERCENT AUTO 6.9 % (25.0-50.0); MEAN CORPUSCULAR HEMOGLOBIN 27.6 pg (26.0-32.0); MEAN CORPUSCULAR HGB CONC 30.3 g/dL (32.0-36.0); MEAN CORPUSCULAR VOLUME 91.3 fL (78.0-93.0); MONOCYTES ABSOLUTE AUTO 0.9 x10^3/uL (0.0-0.8); MONOCYTES PERCENT AUTO 10.5 % (2.0-11.0); NEUTROPHILS ABSOLUTE AUTO 7.1 x10^3/uL (1.8-7.7); NEUTROPHILS PERCENT AUTO 81.7 % (50.0-80.0); PLATELET COUNT,PLT 219 x10^3/uL (130-400); RED BLOOD CELL COUNT 5.86 x10^6/uL (4.5-6.0); WHITE BLOOD CELL COUNT,WBC 8.7 x10^3/uL (4.0-10.0)
[2023-11-05 14:06] LABS: ALANINE AMINOTRANSFERASE,ALT 34 U/L (16-63); ALBUMIN 3.1 g/dL (3.4-5.0); ALKALINE PHOSPHATASE 90 U/L (46-116); ANION GAP 9.1 mmol/L (5-15); ASPARTATE AMNIOTRANSFERASE,AST 32 U/L (15-37); BILIRUBIN TOTAL 0.3 mg/dL (0.2-1.0); BLOOD UREA NITROGEN,BUN 26 mg/dL (7-18); C-REACTIVE PROTEIN 5.85 mg/dL (<=0.50); CALCIUM 8.5 mg/dL (8.5-10.1); CARBON DIOXIDE,CO2 37 mmol/L (21-32); CHLORIDE,CL 98 mmol/L (98-107); CREATINE KINASE,CK 79 U/L (39-308); ESTIMATED GFR 39 mL/min (>=60); GLUCOSE RANDOM 170 mg/dL (70-99); POTASSIUM,K 4.1 mmol/L (3.5-5.1); PRO B-TYPE NATRIUR PEPT,BNPPRO 5285 pg/mL (<=125); PROTEIN TOTAL,TP 7.5 g/dL (6.4-8.2); SODIUM,NA 140 mmol/L (136-145)
[2023-11-05 14:08] LABS: BARBITURATE SCREEN,URINE NEGATIVE (NEGATIVE); BENZODIAZEPINES SCREEN,URINE NEGATIVE (NEGATIVE); BUPRENORPHINE SCREEN,URINE NEGATIVE (NEGATIVE); COCAINE METABOLITES,URINE NEGATIVE (NEGATIVE); METHADONE SCREEN, URINE NEGATIVE (NEGATIVE); OXYCODONE SCREEN,URINE NEGATIVE (NEGATIVE); PCP SCREEN,URINE NEGATIVE (NEGATIVE)
[2023-11-05 14:09] LABS: AMPHETAMINES SCREEN, URINE POSITIVE (NEGATIVE); METHAMPHETAMINE SCREEN, URINE POSITIVE (NEGATIVE); THC SCREEN,URINE 50 NG/ML POSITIVE (NEGATIVE)
[2023-11-05] MEDS ORDERED: Furosemide 40 MG/4 ML VIAL IV ONE (14:19)
[2023-11-05] MEDS ORDERED: Heparin Sodium 5,000 Units/ML Vial IVPUSH ONE (14:32)
[2023-11-05] MEDS ORDERED: Aspirin 81 MG Tab.Chew PO ONE (14:41)
[2023-11-05] MEDS ORDERED: Heparin Sodium/0.45% NaCl 25,000 UNITS/500 ML BAG IV SCH ×2 (14:45→15:30)
[2023-11-05 22:54] VITALS: BP 135/80; PULSE 102
== END 2023-11-05 15:45 | disposition short-term general hospital (02) ==
LOC: VM.ED 12:56
DX: I21.4 Non-ST elevation (NSTEMI) myocardial infarction (principal); T82.897A Other specified complication of cardiac prosthetic devices, implants and grafts, initial encounter; Z95.810 Presence of automatic (implantable) cardiac defibrillator; R79.89 Other specified abnormal findings of blood chemistry
CPT/HCPCS: 36415; 71046; 80053; 80305; 82550; 83605; 83880; 84145; 84484; 85025; 85730; 86140; 87040; 93005; 93010; 99284; A9270; J1644; J1940; 96374; 96375; 99285-25

== ENCOUNTER 2024-08-26 17:25 | Emergency (ER) | payer BC, MEDICAID, MEDICARE ==
[2024-08-26 17:36] VITALS: BP 109/66; PULSE 88
== END 2024-08-26 17:35 | disposition home or self-care (01) ==
LOC: VM.ED 17:25
DX: H61.23 Impacted cerumen, bilateral (principal); E78.00 Pure hypercholesterolemia, unspecified; I10 Essential (primary) hypertension; I25.2 Old myocardial infarction; Z95.0 Presence of cardiac pacemaker; Z90.49 Acquired absence of other specified parts of digestive tract; Z79.82 Long term (current) use of aspirin; Z79.899 Other long term (current) drug therapy; Z88.5 Allergy status to narcotic agent; Z91.030 Bee allergy status
CPT/HCPCS: 99282; 99283

== ENCOUNTER 2024-11-11 10:40 | Emergency (ER) | payer MEDICAID, MEDICARE ==
[2024-11-11] MEDS: Acetaminophen 500 MG Tab PO ONE (10:54)
[2024-11-11] MEDS ORDERED: Levofloxacin/Dextrose 5%-Water 750 MG in Premix Bag 1 BAG IV ONE (11:02)
[2024-11-11 11:13] LABS: BASOPHILS PERCENT AUTO 0.2 % (0.2-1.2); EOSINOPHILS PERCENT AUTO 0.1 % (0.0-4.0); HEMATOCRIT 47.5 % (40.0-52.0); HEMOGLOBIN 15.6 g/dL (14.0-18.0); IMMATURE GRAN ABSOLUTE AUTO 0.02 x10^3/uL (0.00-0.07); LYMPHOCYTES ABSOLUTE AUTO 0.7 x10^3/uL (1.0-4.8); LYMPHOCYTES PERCENT AUTO 5.8 % (25.0-50.0); MEAN CORPUSCULAR HGB CONC 32.8 g/dL (32.0-36.0); MEAN CORPUSCULAR VOLUME 85.3 fL (78.0-93.0); MONOCYTES ABSOLUTE AUTO 1.2 x10^3/uL (0.0-0.8); MONOCYTES PERCENT AUTO 10.2 % (2.0-11.0); NEUTROPHILS ABSOLUTE AUTO 9.7 x10^3/uL (1.8-7.7); NEUTROPHILS PERCENT AUTO 83.5 % (50.0-80.0); PLATELET COUNT,PLT 190 x10^3/uL (130-400); RED BLOOD CELL COUNT 5.57 x10^6/uL (4.5-6.0); WHITE BLOOD CELL COUNT,WBC 11.6 x10^3/uL (4.0-10.0)
[2024-11-11 11:19] LABS: HCO3 VENOUS,POC 37 mmol/L (22-29); O2 SATURATION VENOUS,POC 90 %; PCO2 VENOUS,POC 59 mmHg (41-51); PH VENOUS,POC 7.41 pH (7.32-7.43); PO2 VENOUS,POC 60 mmHg
[2024-11-11] MEDS: methylPREDNISolone Sodium Succinate 125 MG/2 ML SDV IV ONE (11:20)
[2024-11-11] MEDS: Doxycycline Monohydrate 100 MG Cap PO ONE (11:20)
[2024-11-11] MEDS: Ampicillin/Sulbactam 3 GM Vial IVPUSH ONE (11:22)
[2024-11-11 11:30] LABS: LACTIC ACID 0.8 mmol/L (0.4-2.0)
[2024-11-11 11:35] LABS: C-REACTIVE PROTEIN 16.45 mg/dL (<=0.50)
[2024-11-11 11:40] LABS: A/G RATIO 0.57; ALBUMIN 2.8 g/dL (3.4-5.0); ANION GAP 4.3 mmol/L (5-15); BILIRUBIN TOTAL 0.8 mg/dL (0.2-1.0); CALCIUM 8.4 mg/dL (8.5-10.1); CREATININE 1.4 mg/dL (0.70-1.30); EST CRCL DRUG DOSING (CG) 60.83 mL/min; POTASSIUM,K 3.3 mmol/L (3.5-5.1); PROTEIN TOTAL,TP 7.7 g/dL (6.4-8.2)
[2024-11-11] MEDS: Iopamidol 755 Mg/ML 100 ML Bottle IVPUSH ONE (12:49)
[2024-11-11 16:08] VITALS: BP 120/81; PULSE 74
== END 2024-11-11 16:36 | disposition short-term general hospital (02) ==
LOC: VM.ED 10:40
DX: I21.4 Non-ST elevation (NSTEMI) myocardial infarction (principal); J10.00 Influenza due to other identified influenza virus with unspecified type of pneumonia; I25.10 Atherosclerotic heart disease of native coronary artery without angina pectoris; I11.0 Hypertensive heart disease with heart failure; I50.9 Heart failure, unspecified; E78.00 Pure hypercholesterolemia, unspecified; Z90.49 Acquired absence of other specified parts of digestive tract; Z88.5 Allergy status to narcotic agent; Z88.6 Allergy status to analgesic agent; Z91.030 Bee allergy status; Z79.82 Long term (current) use of aspirin; Z79.51 Long term (current) use of inhaled steroids; Z79.899 Other long term (current) drug therapy
CPT/HCPCS: 36415; 71275; 80053; 82803; 83605; 83880; 84484; 85025; 85379; 86140; 87040; 93005; 96374; 96375; 99285-25; A9270-GY; J0295; J2919; Q9967